=== PATIENT | male | born 1965 | race Caucasian/White ===

== ENCOUNTER 2021-01-18 12:31 | Outpatient (REF) | payer BC, SELFPAY ==
--- NOTE | ~2021-01-18 | XR_ITS ---
EXAMINATION: XR CHEST CLINICAL INFORMATION: Right upper chest pain COMPARISON: Previous chest x-ray November 2013 TECHNIQUE: 2 views of the chest were obtained. FINDINGS: The cardiac and mediastinal contours are normal. The lungs are clear. There is no pleural effusion or pneumothorax. There are mild degenerative changes of the spine. XR/XR chest 2V IMPRESSION: Unremarkable examination.
[2021-01-18 14:00] LABS: MANUAL DIFF FLAG NO
[2021-01-18 14:07] LABS: Basophils Percent Auto 0.5 % (0-2); Eosinophils Absolute Auto 0.1 X10*3/uL (0.0-0.4); Eosinophils Percent Auto 1.3 % (0-4); Hematocrit 45.8 % (42-52); Hemoglobin 15.6 g/dl (14.0-18.0); Imm Gran Abs Auto 0.02 X10*3/uL (0.00-0.03); Imm Gran Pct Auto 0.3 % (0.0-0.4); Lymphocytes Absolute Auto 1.5 X10*3/uL (1.2-4.9); Lymphocytes Percent Auto 24.8 % (20-40); Mean Corpuscular HGB Conc 34.1 g/dl (31.0-36.0); Mean Corpuscular Hemoglobin 29.8 pg (27.0-33.0); Mean Corpuscular Volume 87.4 fL (80-98); Mean Platelet Volume 10.2 fL (9.4-12.4); Monocytes Absolute Auto 0.6 X10*3/uL (0.1-1.2); Monocytes Percent Auto 10.1 % (2-11); Neutrophils Absolute Auto 3.9 X10*3/uL (2.0-8.3); Platelet Count 211 X10*3/uL (160-400); Red Blood Count 5.24 X10*6/uL (4.60-5.80); Red Cell Distribution Width 12.1 % (11.0-16.0); White Blood Count 6.1 X10*3/uL (4.8-10.8)
[2021-01-18 14:48] LABS: Alanine Aminotransferase 14 U/L (0-40); Albumin Level 4.3 g/dL (3.5-5.0); Alkaline Phosphatase 69 U/L (39-117); Anion Gap 14 (12-20); Aspartate Amino Transferase 14 U/L (5-37); Bilirubin Total 0.4 mg/dL (0.0-1.0); Blood Urea Nitrogen 15 mg/dL (9-16); C Reactive Protein 0.28 mg/dL (< or = 0.50); Calcium 9.1 mg/dL (8.4-10.2); Carbon Dioxide 28 mmol/L (22-29); Chloride 106 mmol/L (96-108); Estimated Glomerular Filt Rate > 60; Glucose Random 81 mg/dL (60-115); Potassium 4.7 mmol/L (3.3-5.1); Sodium 143 mmol/L (135-145); Total Protein 6.8 g/dL (6.5-8.0)
== END 2021-01-18 12:32 | disposition home or self-care (01) ==
LOC: HO.LAB 12:31
PROVIDERS: PCP Internal Medicine; Visit Provider Internal Medicine
DX: R07.89 Other chest pain (principal); I10 Essential (primary) hypertension
CPT/HCPCS: 36415; 71046; 80053; 85025; 86140

== ENCOUNTER 2021-01-20 18:34 | Outpatient (REF) | payer BC, SELFPAY ==
--- NOTE | ~2021-01-20 | MR_ITS ---
EXAMINATION: MR SHOULDER WITHOUT CONTRAST, RIGHT CLINICAL INFORMATION: Right shoulder pain. Evaluate for a partial rotator cuff tear. COMPARISON: None TECHNIQUE: MRI of the shoulder without contrast was performed on a high-field scanner. FINDINGS: ROTATOR CUFF: Intact. No muscle atrophy or fatty infiltration. BICEPS: Normal. CORACOACROMIAL ARCH: The undersurface of the acromion is curved with no subacromial spur. Mhadpbsh-bh-pezrub acromioclavicular osteoarthritis with an associated joint effusion as well as adjacent marrow and capsular edema. Given the degree of findings, this is likely the source of the patient's pain. LABRUM/CAPSULE: Nondisplaced undersurface tearing of the posterior, posteroinferior, and inferior labrum. There is a paralabral cyst adjacent to the posteroinferior labrum which measures up to 1.5 cm as well as a small paralabral cyst adjacent to the inferior labrum measuring up to 0.7 cm. The joint capsule is intact. GLENOHUMERAL JOINT/MARROW: Normal. MR/MR shoulder RT wo con IMPRESSION: 1. Piuxxwcg-[id number]-omxdkf acromioclavicular osteoarthritis with a joint effusion as well as adjacent marrow and capsular edema. Given the degree of findings, this may be the source of the patient's pain. 2. Nondisplaced undersurface tearing of the posterior, posteroinferior, and inferior labrum with adjacent paralabral cysts measuring 1.5 cm posteriorly and 0.7 cm more anteriorly. 3. No rotator cuff tear.
== END 2021-01-20 18:35 | disposition home or self-care (01) ==
LOC: HO.MRI 18:34
PROVIDERS: PCP Internal Medicine; Visit Provider Internal Medicine
DX: M25.511 Pain in right shoulder (principal); M75.111 Incomplete rotator cuff tear or rupture of right shoulder, not specified as traumatic
CPT/HCPCS: 73221

== ENCOUNTER 2021-12-15 08:18 | Outpatient (REF) | payer BC, SELFPAY ==
[2021-12-15 10:29] LABS: MANUAL DIFF FLAG NO
[2021-12-15 10:32] LABS: Basophils Percent Auto 0.5 % (0-2); Eosinophils Absolute Auto 0.1 X10*3/uL (0.0-0.4); Eosinophils Percent Auto 2.3 % (0-4); Hematocrit 45.2 % (42.0-52.0); Hemoglobin 15.5 g/dl (14.0-18.0); Imm Gran Abs Auto 0.03 X10*3/uL (0.00-0.03); Imm Gran Pct Auto 0.5 % (0.0-0.4); Lymphocytes Absolute Auto 1.2 X10*3/uL (1.2-4.9); Lymphocytes Percent Auto 21.8 % (20-40); Mean Corpuscular HGB Conc 34.3 g/dl (31.0-36.0); Mean Corpuscular Hemoglobin 29.9 pg (27.0-33.0); Mean Corpuscular Volume 87.1 fL (80.0-98.0); Mean Platelet Volume 9.8 fL (9.4-12.4); Monocytes Absolute Auto 0.8 X10*3/uL (0.1-1.2); Monocytes Percent Auto 14.4 % (2-11); Neutrophils Absolute Auto 3.4 x10*3/uL (2.0-8.3); Neutrophils Percent Auto 60.5 % (45-73); Platelet Count 228 X10*3/uL (160-400); Red Blood Count 5.19 X10*6/uL (4.60-5.80); Red Cell Distribution Width 12.4 % (11.0-16.0); White Blood Count 5.6 X10*3/uL (4.8-10.8)
[2021-12-15 10:56] LABS: Alanine Aminotransferase 47 U/L (0-40); Albumin Level 4.1 g/dL (3.5-5.0); Alkaline Phosphatase 60 U/L (39-117); Anion Gap 10 (12-20); Aspartate Amino Transferase 107 U/L (5-37); Bilirubin Total 0.7 mg/dL (0.0-1.0); Blood Urea Nitrogen 19 mg/dL (9-16); Carbon Dioxide 28 mmol/L (22-29); Chloride 107 mmol/L (96-108); Cholesterol 206 mg/dL; Estimated Glomerular Filt Rate > 60; Glucose Fasting 99 mg/dL (60-99); HDL Cholesterol 37 mg/dL; LDL Cholesterol Calculated 136 mg/dl; Potassium 4.2 mmol/L (3.3-5.1); Sodium 141 mmol/L (135-145); Total Protein 6.6 g/dL (6.5-8.0); Triglycerides 165 mg/dL
[2021-12-15 11:17] LABS: Prostate Specific Antigen Scr 1.12 ng/mL (<0.05-4.0)
== END 2021-12-15 08:19 | disposition home or self-care (01) ==
LOC: HO.10HDL 08:18
PROVIDERS: Visit Provider Internal Medicine
DX: Z00.00 Encounter for general adult medical examination without abnormal findings (principal); Z12.5 Encounter for screening for malignant neoplasm of prostate
CPT/HCPCS: 36415; 80053; 80061; 84153; 85025

== ENCOUNTER 2021-12-17 09:45 | Outpatient (REF) | payer BC, SELFPAY ==
[2021-12-17 11:47] LABS: Alanine Aminotransferase 48 U/L (0-40); Albumin Level 4.2 g/dL (3.5-5.0); Alkaline Phosphatase 63 U/L (39-117); Aspartate Amino Transferase 82 U/L (5-37); Bilirubin Direct 0.3 mg/dL (0.0-0.5); Bilirubin Total 0.8 mg/dL (0.0-1.0); C Reactive Protein 0.33 mg/dL (< or = 0.50); Total Protein 6.8 g/dL (6.5-8.0)
[2021-12-17 12:05] LABS: HBS Num1 0.21 mIU/mL (0-7.99); ~HepC Num1 0.18 S/CO (0.00-0.79); ~Hepatitis B Surface Antibody NONREACTIVE (Nonreactive); ~Hepatitis C Antibody Nonreactive (Nonreactive)
[2021-12-17 12:08] LABS: HBsAGNum1 0.25 S/CO (0.00-0.99); Hepatitis B Surface Antigen Negative (Negative)
== END 2021-12-17 09:46 | disposition home or self-care (01) ==
LOC: HO.10HDL 09:45
PROVIDERS: Visit Provider Internal Medicine
DX: R79.89 Other specified abnormal findings of blood chemistry (principal)
CPT/HCPCS: 36415; 80076; 86140; 86706; 86803; 87340

== ENCOUNTER 2022-01-03 09:54 | Outpatient (REF) | payer BC, SELFPAY ==
--- NOTE | ~2022-01-03 | US_ITS ---
EXAMINATION: US ABDOMEN COMPLETE CLINICAL INFORMATION: Elevated liver test. COMPARISON: None TECHNIQUE: Real-time imaging of the abdominal viscera. FINDINGS: PANCREAS: Normal. ABDOMINAL AORTA: The proximal, mid, and distal segments are normal in caliber. INFERIOR VENA CAVA: Visualized portions are normal. LIVER: Normal. The liver is normal in size. The liver contour is normal. Parenchymal echogenicity is normal. No focal hepatic lesion. There is no intrahepatic biliary duct dilatation seen. GALLBLADDER: Impacted 2.7 cm stone in the gallbladder neck without secondary evidence of acute cholecystitis. No gallbladder wall thickening or pericholecystic fluid. Negative sonographic Stinson sign. COMMON BILE DUCT: Not visualized. RIGHT KIDNEY: Normal. No hydronephrosis. No renal calculi or focal parenchymal lesions. The kidney measures 13.1 cm in maximum dimension. LEFT KIDNEY: Normal. No hydronephrosis. No renal calculi or focal parenchymal lesions. The kidney measures 14.0 cm in maximum dimension. SPLEEN: Normal. The spleen measures 13.0 cm in maximum dimension. FREE FLUID: None. US/US abdomen complete IMPRESSION: Nonvisualization of the common bile duct. No intrahepatic ductal dilatation. Impacted gallstone in the gallbladder neck without secondary evidence of acute cholecystitis.
== END 2022-01-03 09:55 | disposition home or self-care (01) ==
LOC: HO.HMGCX 09:54
PROVIDERS: PCP Internal Medicine; Visit Provider Internal Medicine
DX: R74.01 Elevation of levels of liver transaminase levels (principal)
CPT/HCPCS: 76700

== ENCOUNTER 2022-01-25 12:28 | Outpatient (REF) | payer BC, SELFPAY ==
[2022-01-25 12:40] LABS: MANUAL DIFF FLAG NO
[2022-01-25 13:18] LABS: Basophils Percent Auto 0.2 % (0-2); Eosinophils Absolute Auto 0.1 X10*3/uL (0.0-0.4); Eosinophils Percent Auto 1.9 % (0-4); Hematocrit 46.3 % (42.0-52.0); Hemoglobin 15.4 g/dl (14.0-18.0); Imm Gran Abs Auto 0.02 X10*3/uL (0.00-0.03); Imm Gran Pct Auto 0.4 % (0.0-0.4); Lymphocytes Absolute Auto 1.1 X10*3/uL (1.2-4.9); Lymphocytes Percent Auto 21.6 % (20-40); Mean Corpuscular HGB Conc 33.3 g/dl (31.0-36.0); Mean Corpuscular Hemoglobin 28.9 pg (27.0-33.0); Mean Platelet Volume 9.8 fL (9.4-12.4); Monocytes Absolute Auto 0.9 X10*3/uL (0.1-1.2); Neutrophils Percent Auto 57.9 % (45-73); Platelet Count 197 X10*3/uL (160-400); Red Blood Count 5.32 X10*6/uL (4.60-5.80); Red Cell Distribution Width 12.2 % (11.0-16.0); White Blood Count 5.2 X10*3/uL (4.8-10.8)
[2022-01-25 13:47] LABS: Alanine Aminotransferase 17 U/L (0-40); Albumin Level 4.1 g/dL (3.5-5.0); Alkaline Phosphatase 63 U/L (39-117); Anion Gap 11 (12-20); Aspartate Amino Transferase 16 U/L (5-37); Bilirubin Total 0.6 mg/dL (0.0-1.0); Blood Urea Nitrogen 16 mg/dL (9-16); C Reactive Protein 2.39 mg/dL (< or = 0.50); Carbon Dioxide 28 mmol/L (22-29); Chloride 106 mmol/L (96-108); Estimated Glomerular Filt Rate 52; Glucose Random 92 mg/dL (60-115); Potassium 4.4 mmol/L (3.3-5.1); Sodium 141 mmol/L (135-145); Total Protein 6.7 g/dL (6.5-8.0)
== END 2022-01-25 12:29 | disposition home or self-care (01) ==
LOC: HO.LAB 12:28
PROVIDERS: PCP Internal Medicine; Visit Provider Internal Medicine
DX: R10.9 Unspecified abdominal pain (principal); K80.20 Calculus of gallbladder without cholecystitis without obstruction
CPT/HCPCS: 36415; 80053; 85025; 86140

== ENCOUNTER → 2022-01-26 08:26 | Outpatient (BNVA) | payer BC, SELFPAY | PROVIDERS: PCP Internal Medicine; Referring Provider Internal Medicine; Visit Provider Surgery | DX: Z13.89 Encounter for screening for other disorder (principal) ==

== ENCOUNTER 2022-12-05 09:03 | Day surgery (SDC) | payer BC, SELFPAY ==
[2022-12-05 06:20] VITALS: BMI 31.6
[2022-12-05 09:06] VITALS: BP 136/93; PULSE 75; RESP 19; TEMP 36.9; O2SAT 97
[2022-12-05] MEDS: Lactated Ringers 1,000 ML 50 ML IVCONT (09:25)
--- NOTE | 2022-12-05 09:54 | P.CONAN_ITS ---
HPI - Anesthesia Eval Consult details Narrative: 57 M for colonoscopy [facility] Active Problems Active Problems: All Active Problems (Updated 12/02/22 @ 13:06 by Mireya Sequeira RN) Gallstone (Acute) Hypertension (Acute) Past Medical History Medical History (Updated 12/02/22 @ 13:06 by Mireya Sequeira RN) Gallstone Hypertension KIMBERLY (obstructive sleep apnea) Functional capacity: independent ambulation Family History Family history of problems with anesthesia: No Surgical History Surgical History (Updated 12/02/22 @ 13:06 by Mireya Sequeira RN) H/O colonoscopy History of knee surgery History of shoulder surgery History of tonsillectomy [place] teeth extracted History of Problems with Anesthesia: No Social History Social History (Updated 01/26/22 @ 14:31 by CATIE Ardon) Patient Tobacco Use Status: Never used Tobacco Are you DNR?: No Advance Directives: No Advance Directives Information Provided: Yes Meds Allergies Allergy/AdvReac Type Severity Reaction Status Date / Time No Known Allergies Allergy Verified 01/26/22 08:34 [No Known Allergies*] Active Medications: Current Medications Lactated Ringer's (Lr) 1,000 mls @ 50 mls/hr IVCONT .Q20H MENDEZ Last Admin: 12/05/22 09:25 Dose: 50 mls/hr Sodium Biphosphate/Sodium Phosphate (Sodium Phosphate,Dickey-Dibasic 133 Ml Enema) 133 ml TN ONCE PRN PRN Reason: Poor Colonoscopy Prep Results Home Medications Medication Instructions Recorded Confirmed Last Taken Type amlodipine 5 mg tablet 5 mg PO DAILY 01/26/22 12/05/22 12/05/22 History losartan 50 mg tablet 50 mg PO BID 01/26/22 12/05/22 12/05/22 History Exam Exam Date and Time: December 05, 2022 0954 Height,Weight and Vital Signs: Height 6 ft 2 in Weight 111.584 kg Last Vital Signs Temp 98.5 F 12/05/22 09:06 Pulse 75 12/05/22 09:06 Resp 19 12/05/22 09:06 BP 136/93 H 12/05/22 09:06 Pulse Ox 97 12/05/22 09:06 O2 Del Method 12/05/22 09:06 Airway Mallampati Class: III Loose/Missing/Broken Teeth: Yes (Chipped multiple ) Assessment and Plan Assessment Anesthesia Assessment: Anesthesia Plan Discussed and Chart Reviewed Final Anesthetic Review Family History of Problems with Anesthesia: No History of Problems with Anesthesia: No NPO: Yes ASA Class: II Final Preanesthetic Review: Meds/Allgs Chart Reviewed, Consent Obtained/Reviewed and Anes Risks/Benef Reviewed Patient Risk: Intermediate Procedure Risk: Intermediate Anesthetic Plan Anesthetic Plan: MAC: Disposition: Standard PACU
--- NOTE | 2022-12-05 11:19 | PM.OP ---
Brief Operative Note Date of Service: 12/05/22 Pre-op diagnosis: Screening Post-op diagnosis: other (Colon polyp) Procedure: Colonoscopy to the cecum and TI with biopsy and removal of polyp Surgeon: Jerod Valdes Anesthesia: MAC Was an Rib Stiffener And Heel Dipper used for this Procedure?: No Estimated blood loss (mL): 2.0 Pathology: other (A. Polyp at 50cm) Condition: stable Disposition: PACU
[2022-12-05 11:22] VITALS: BP 133/73; PULSE 79; RESP 17; TEMP 36.6; O2SAT 97
[2022-12-05 11:37] VITALS: BP 127/84; PULSE 68; RESP 16; TEMP 36.3; O2SAT 97
--- NOTE | 2022-12-06 03:23 | OP_ITS ---
SURGEON: Jerod Valdes MD INDICATIONS: The patient presents for followup of colorectal cancer screening and personal history of tubular adenoma of the colon. Full consent has been obtained from him for this, including risks of bleeding and perforation. PREOPERATIVE DIAGNOSIS: POSTOPERATIVE DIAGNOSIS: PROCEDURE PERFORMED: Colonoscopy to the cecum and terminal ileum with biopsy and removal of polyp. ESTIMATED BLOOD LOSS: COMPLICATIONS: ANESTHESIA: Medications used, monitored anesthesia care. ASSISTANTS: SPECIMENS: PREOPERATIVE DIAGNOSES: Colorectal cancer screening and personal history of tubular adenoma of the colon. POSTOPERATIVE DIAGNOSES: Colorectal cancer screening and personal history of tubular adenoma of the colon, colon polyp, diverticulosis, and internal hemorrhoids. DESCRIPTION OF PROCEDURE: The patient was placed in the left lateral decubitus position. The digital rectal exam revealed no abnormalities. The Olympus video pediatric colonoscope was entered into the rectum and advanced easily to the cecum. Once in the cecum, I did identify normal-appearing cecal pouch with appendiceal orifice and normal-appearing ileocecal valve. The terminal ileum was cannulated and appeared normal. The scope was withdrawn back in the colon. The entire cecum and ileocecal valve appeared normal. The scope was slowly withdrawn assessing all mucosal surfaces carefully. Preparation was excellent. At 50 cm was a flat, approximately 3 to 4 mm polyp, which was biopsied and completely removed with cold biopsy forceps. I did not visualize any other polyps, colitis, or angiodysplasias. There was a mild amount of sigmoid diverticulosis. In the rectum, the scope was retroflexed visualizing small internal hemorrhoids, but no other pathology. The rectal mucosa appeared normal. The scope was straightened and withdrawn from the patient. He tolerated the procedure well and was returned to the recovery area in stable condition. IMPRESSION: 1. Colon polyp. 2. Diverticulosis. 3. Internal hemorrhoids. PLAN: The results of the biopsy will be checked. I would recommend a repeat colonoscopy in 5 years for further screening. He will otherwise see me on a p.r.n. basis. MD GUILLERMO Fernandez/MILAGRO / [id number] MTDD
== END 2022-12-05 12:02 | disposition home or self-care (01) ==
PROVIDERS: PCP Internal Medicine; Visit Provider Internal Medicine
PROC: 0DJD8ZZ Inspection of Lower Intestinal Tract, Via Natural or Artificial Opening Endoscopic (ICD-10-PCS; CPT 45378; principal; 2022-12-05 10:20)
DX: Z12.11 Encounter for screening for malignant neoplasm of colon (principal); Z86.010 Personal history of colon polyps; K63.5 Polyp of colon; K57.30 Diverticulosis of large intestine without perforation or abscess without bleeding; K64.8 Other hemorrhoids; G47.33 Obstructive sleep apnea (adult) (pediatric); I10 Essential (primary) hypertension; K80.20 Calculus of gallbladder without cholecystitis without obstruction; R79.89 Other specified abnormal findings of blood chemistry; Z79.899 Other long term (current) drug therapy
CPT/HCPCS: 45380; 88305

== ENCOUNTER 2023-05-05 06:56 | Outpatient (REF) | payer BC, SELFPAY ==
[2023-05-05 07:14] LABS: MANUAL DIFF FLAG NO
[2023-05-05 08:12] LABS: Basophils Percent Auto 0.7 % (0-2); Eosinophils Absolute Auto 0.2 X10*3/uL (0.0-0.4); Hematocrit 47.5 % (42.0-52.0); Hemoglobin 16.2 g/dl (14.0-18.0); Imm Gran Abs Auto 0.02 X10*3/uL (0.00-0.03); Imm Gran Pct Auto 0.3 % (0.0-0.4); Lymphocytes Absolute Auto 1.4 X10*3/uL (1.2-4.9); Lymphocytes Percent Auto 23.2 % (20-40); Mean Corpuscular HGB Conc 34.1 g/dl (31.0-36.0); Mean Corpuscular Hemoglobin 29.9 pg (27.0-33.0); Mean Corpuscular Volume 87.8 fL (80.0-98.0); Mean Platelet Volume 9.8 fL (9.4-12.4); Monocytes Absolute Auto 0.8 X10*3/uL (0.1-1.2); Monocytes Percent Auto 12.8 % (2-11); Neutrophils Absolute Auto 3.6 x10*3/uL (2.0-8.3); Platelet Count 205 X10*3/uL (160-400); Red Blood Count 5.41 X10*6/uL (4.60-5.80); Red Cell Distribution Width 12.3 % (11.0-16.0)
[2023-05-05 08:14] LABS: Appearance Urine Clear; Color Urine Yellow; Glucose Urine UA Negative (Negative); Leukocyte Esterase Urine Negative (Negative); Nitrite Urine Negative (Negative); PH 6.5 (5.0-9.0); Specific Gravity - Urine 1.025 (1.005-1.025); Urine Blood Negative (Negative); Urine Ketones Negative (Negative); Urine Protein Negative (Neg-Trace)
[2023-05-05 09:10] LABS: Alanine Aminotransferase 35 U/L (0-40); Alkaline Phosphatase 69 U/L (39-117); Anion Gap 14 (12-20); Aspartate Amino Transferase 22 U/L (5-37); Bilirubin Total 0.5 mg/dL (0.0-1.0); Blood Urea Nitrogen 19 mg/dL (9-16); Calcium 9.3 mg/dL (8.4-10.2); Carbon Dioxide 26 mmol/L (22-29); Chloride 107 mmol/L (96-108); Cholesterol 216 mg/dL; Estimated Glomerular Filt Rate > 60; Glucose Fasting 95 mg/dL (60-99); HDL Cholesterol 41 mg/dL; LDL Cholesterol Calculated 137 mg/dl; Potassium 4.2 mmol/L (3.3-5.1); Sodium 143 mmol/L (135-145); Total Protein 7.1 g/dL (6.5-8.0); Triglycerides 190 mg/dL
[2023-05-05 09:24] LABS: Prostate Specific Antigen 0.92 ng/mL (<0.05-4.0)
[2023-05-05 09:28] LABS: Free T4 (Free Thyroxine) 0.87 ng/dL (0.71-1.85); Thyroid Stimulating Hormone 6.54 uIU/mL (0.32-4.0)
== END 2023-05-05 06:57 | disposition home or self-care (01) ==
LOC: HO.LAB 06:56
PROVIDERS: PCP Internal Medicine; Visit Provider Internal Medicine
DX: I10 Essential (primary) hypertension (principal); R63.5 Abnormal weight gain; R35.1 Nocturia; Z12.5 Encounter for screening for malignant neoplasm of prostate
CPT/HCPCS: 36415; 80053; 80061; 81003; 84153; 84439; 84443; 85025

== ENCOUNTER 2023-07-10 06:53 | Outpatient (REF) | payer BC, SELFPAY ==
[2023-07-10 12:06] LABS: Cholesterol 212 mg/dL (<200); HDL Cholesterol 39 mg/dL (>40); LDL Cholesterol Calculated 134 mg/dL (<100); Triglycerides 196 mg/dL (<150)
[2023-07-10 12:25] LABS: Free T4 (Free Thyroxine) 0.94 ng/dL (0.71-1.85); Thyroid Stimulating Hormone 5.38 uIU/mL (0.32-4.0)
== END 2023-07-10 06:54 | disposition home or self-care (01) ==
LOC: HO.HMGCLDS 06:53
PROVIDERS: PCP Internal Medicine; Visit Provider Internal Medicine
DX: E03.9 Hypothyroidism, unspecified (principal); E78.00 Pure hypercholesterolemia, unspecified
CPT/HCPCS: 36415; 80061; 84439; 84443

== ENCOUNTER 2023-09-04 08:07 | Outpatient (REF) | payer BC, SELFPAY ==
--- NOTE | ~2023-09-04 | CT_ITS ---
EXAMINATION: CT ABDOMEN AND PELVIS WITHOUT CONTRAST CLINICAL INFORMATION: Right-sided abdominal pain, rule out impacted gallstone COMPARISON: Ultrasound from 01/03/2022 TECHNIQUE: Multidetector volumetric imaging was performed from the superior aspect of the liver through the pubic symphysis. Sagittal and coronal reformatted images were obtained on the technologist's workstation. This CT examination was performed using dose optimization techniques as appropriate, variously including the following: *Automated exposure control *Adjustment of mA and/or kV according to patient size (this includes techniques or standardized protocols for targeted exams where dose is matched to indication/reason for exam; i.e. extremities or head) *Use of iterative reconstruction technique DLP: 778 mGy-cm FINDINGS: LUNG BASES: The visualized lung bases are unremarkable. LIVER, GALLBLADDER, AND BILIARY TREE: The liver is normal in size, shape, and attenuation. No focal hepatic lesion or biliary ductal dilatation is present. Gallbladder is partially contracted with circumferentially calcified 1.7 x 1.7 x 2.1 there is no evidence of wall thickening. CBD is not dilated. There is no choledocholithiasis. Cm calculus in the medial portion of gallbladder PANCREAS: Unremarkable. SPLEEN: Unremarkable. ADRENAL GLANDS: Unremarkable. KIDNEYS AND URETERS: The kidneys are normal in size, shape, and attenuation. No hydronephrosis, hydroureter, or calculi seen. No perinephric stranding. BLADDER: Unremarkable. GASTROINTESTINAL TRACT: There is small hiatal hernia. The stomach, duodenum are unremarkable. Appendix is normal. Loops of small bowel are unremarkable. Colon is normal with retention of stool. A no diverticulitis or diverticulosis seen. ABDOMINAL WALL: All fat-containing umbilical hernia, left inguinal hernia. LYMPH NODES: Normal. VASCULAR: Unremarkable. PELVIC VISCERA: Unremarkable. OSSEOUS STRUCTURES: Unremarkable. CT/CT abdomen pelvis wo IV con IMPRESSION: 1. Cholelithiasis without evidence of cholecystitis. 2. Small hiatal hernia. 3. Small fat-containing umbilical and left inguinal hernia. Fleischner guidelines were followed.
[2023-09-04] MEDS: Barium Sulfate Oral (Mocha) 450 ML ORAL.SUSP 900 ML PO (10:45)
== END 2023-09-04 08:08 | disposition home or self-care (01) ==
LOC: HO.CT 08:07
PROVIDERS: PCP Internal Medicine; Visit Provider Internal Medicine
DX: R10.31 Right lower quadrant pain (principal)
CPT/HCPCS: 74176

== ENCOUNTER 2023-09-19 09:13 | Outpatient (AMB) | payer BC, SELFPAY ==
--- NOTE | 2023-09-19 09:16 | MHC.OFFVIS ---
Intake Intake Visit Reasons: gallstones Intake Note: Patient referred by Dr. Velásquez for gallstones. Recent CT scan Abd/ pelvis on 09-04-23. C/o Rt abd pain, discomfort after eating a big meal. Denies diarrhea, constipation. Noticed some blood with BM last week. 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 He has had several months history of epigastric right upper quadrant pain. This is associated with meals. He is not unclear if he has fatty food intolerance per se. Otherwise patient is tolerating his diet and having regular bowel habits. Never been jaundiced before. Patient had a sonogram as well as CT scan demonstrated cholelithiasis, umbilical hernia, small left inguinal hernia. Chart was reviewed patient evaluated [facility] Medical History KIMBERLY (obstructive sleep apnea) Gallstone Hypertension Surgical History H/O colonoscopy [place] teeth extracted History of knee surgery History of shoulder surgery History of tonsillectomy Family History (Updated 09/19/23 @ 09:26 by CATIE Dobbins) Father Lung cancer Brother Esophageal cancer (Updated 09/19/23 @ 09:26 by CATIE Dobbins) Alcohol intake: current Alcohol intake frequency: a few times a week Alcohol type: beer, wine and hard liquor Patient Tobacco Use Status: Never used Tobacco Physical Exam Const Other: Well-developed male in no acute distress Eyes Other: Anicteric Chest Other: Chest breath sounds bilaterally, HS 1 in 2 GI Other: Patient was examined both supine and standing with Valsalva. Abdomen soft, moderately corpulent. Rectus diastasis. Approximately 2 cm reducible umbilical hernia. Small left inguinal hernia. Right groin negative. Genitalia within normal limits. Abdomen otherwise soft benign Assessment & Plan Assessment & Plan (1) Gallstone: Code(s): K80.20 - Calculus of gallbladder without cholecystitis without obstruction (2) Umbilical hernia: Code(s): K42.9 - Umbilical hernia without obstruction or gangrene Plan Risks, benefits, alternatives laparoscopic possible open cholecystectomy as well as concomitant umbilical hernia repair reviewed the patient included but not limited to bleeding, infection, recurrence of symptoms, numbness, pain, scarring, bowel or bile duct injury or leak and the patient wishes to proceed. All questions were answered. Arrangements will be made for this on a day which is convenient for him. Coding Level of Care Code New Pt Level 5 (79056) Diagnoses Gallstone K80.20 Umbilical hernia K42.9
== END 2023-09-19 09:41 | disposition home or self-care (01) ==
PROVIDERS: PCP Internal Medicine; Visit Provider Surgery
DX: K80.20 Calculus of gallbladder without cholecystitis without obstruction (principal); K42.9 Umbilical hernia without obstruction or gangrene
CPT/HCPCS: 99204

== ENCOUNTER → 2023-09-19 09:13 | Outpatient (BNVA) | payer BC, SELFPAY | PROVIDERS: PCP Internal Medicine; Visit Provider Surgery ==

== ENCOUNTER 2023-10-06 06:59 | Day surgery (SDC) | payer BC, SELFPAY ==
[2023-10-03 14:44] VITALS: BMI 31.6
--- NOTE | 2023-10-05 23:03 | MHC.SHP ---
Pre-Procedural Eval Section A Date of Service: 10/05/23 The patient is an INPATIENT: No Changes since office visit: No Cold of Flu in the past 2 weeks, No New Medical Problems, No Changes in Medication and No Patient answered all questions The History & Physical has been completed within 30 days and I have reviewed it.: Yes Section B Chief Complaint: Calculus of gallbladder,Umbilical hernia Allergies: Allergies Allergy/AdvReac Type Severity Reaction Status Date / Time No Known Allergies Allergy Verified 09/19/23 09:24 [No Known Allergies*] Plan I have reviewed the history and physical and performed a pertinent physical examination on my patient. No changes have occurred unless specified. Time Spent With Patient Time: Total time managing care of this patient today ____ minutes.
[2023-10-06] VITALS (11 sets, daily range): BP systolic 131–176; BP diastolic 90–116; PULSE 75–90; RESP 12–16; TEMP 36.2–36.3; O2SAT 92–96; BMI 32.4
--- NOTE | 2023-10-06 08:40 | HO.ANESPROP2 ---
Documented by User: Diana Kennedy NP 10/05/23 10:37 HPI - Anesthesia Eval Consult details Narrative: 58yo M for Cholecystectomy Laparoscopic, Repair of Reducible Hernia Umbilical PMFSH Active Problems Active Problems: All Active Problems (Updated 10/03/23 @ 14:41 by Kimberly Forrester RN) Umbilical hernia (Acute) Gallstone (Acute) Hypertension (Acute) Past Medical History Medical History (Updated 10/03/23 @ 14:41 by Kimberly Forrester RN) Hypothyroid KIMBERLY (obstructive sleep apnea) Hypertension Family History Family History (Updated 09/19/23 @ 09:26 by CATIE Dobbins) Father Lung cancer Brother Esophageal cancer Family history of problems with anesthesia: No Surgical History Surgical History (Updated 10/03/23 @ 14:40 by Kimberly Forrester RN) H/O colonoscopy [place] teeth extracted Gallstone History of knee surgery History of shoulder surgery History of tonsillectomy History of Problems with Anesthesia: No Social History Social History (Updated 09/19/23 @ 09:26 by CATIE Dobbins) Alcohol intake: current Alcohol intake frequency: holidays/special occasions only Alcohol type: beer, wine and hard liquor Patient Tobacco Use Status: Never used Tobacco Second Hand Smoke Exposure: No Use of substances other than those prescribed or required for medical reasons: No Are you DNR?: No Advance Directives: No Advance Directives Information Provided: Yes Advance Directives on File: No Meds Allergies Allergy/AdvReac Type Severity Reaction Status Date / Time No Known Allergies Allergy Verified 09/19/23 09:24 [No Known Allergies*] Home Medications Medication Instructions Recorded Confirmed Last Taken Type amlodipine 5 mg tablet 5 mg PO DAILY 01/26/22 10/03/23 12/05/22 History losartan 50 mg tablet 50 mg PO BID 01/26/22 10/03/23 12/05/22 History levothyroxine 25 mcg capsule 25 mcg PO DAILY 09/19/23 10/03/23 Unknown History Exam Height,Weight and Vital Signs: Height 6 ft 2 in Weight 111.584 kg Pertinent Lab Results Pertinent Lab Results: Laboratory Tests 05/05/23 07:13 WBC 6.0 Hgb 16.2 Hct 47.5 Plt Count 205 Sodium 143 Potassium 4.2 Chloride 107 Carbon Dioxide 26 BUN 19 H Creatinine 1.16 Assessment and Plan Assessment Anesthesia Assessment: Chart Reviewed Final Anesthetic Review Family History of Problems with Anesthesia: No History of Problems with Anesthesia: No Documented by User: Daniela Lares DO 10/06/23 08:42 [facility] Past Medical History Medical History (Updated 10/03/23 @ 14:41 by Kimberly Forrester RN) Hypothyroid KIMBERLY (obstructive sleep apnea) Hypertension Family History Family History (Updated 09/19/23 @ 09:26 by CATIE Dobbins) Father Lung cancer Brother Esophageal cancer Family history of problems with anesthesia: No Surgical History Surgical History (Updated 10/03/23 @ 14:40 by Kimberyl Forrester RN) H/O colonoscopy [place] teeth extracted Gallstone History of knee surgery History of shoulder surgery History of tonsillectomy History of Problems with Anesthesia: No Social History Social History (Updated 09/19/23 @ 09:26 by CATIE Dobbins) Alcohol intake: current Alcohol intake frequency: holidays/special occasions only Alcohol type: beer, wine and hard liquor Patient Tobacco Use Status: Never used Tobacco Second Hand Smoke Exposure: No Use of substances other than those prescribed or required for medical reasons: No Are you DNR?: No Advance Directives: No Advance Directives Information Provided: Yes Advance Directives on File: No Meds Allergies Allergy/AdvReac Type Severity Reaction Status Date / Time No Known Allergies Allergy Verified 09/19/23 09:24 [No Known Allergies*] Home Medications Medication Instructions Recorded Confirmed Last Taken Type amlodipine 5 mg tablet 5 mg PO DAILY 01/26/22 10/03/23 12/05/22 History losartan 50 mg tablet 50 mg PO BID 01/26/22 10/03/23 12/05/22 History levothyroxine 25 mcg capsule 25 mcg PO DAILY 09/19/23 10/03/23 Unknown History Exam Exam Date and Time: October 06, 2023 0840 Height,Weight and Vital Signs: Height 6 ft 2 in Weight 111.584 kg Height 6 ft 2 in Weight 114.419 kg Vital Signs Temperature 97.1 F 10/06/23 08:11 Pulse Rate 81 10/06/23 08:11 Respiratory Rate 16 10/06/23 08:11 Blood Pressure 151/99 H 10/06/23 08:11 Pulse Oximetry 94 10/06/23 08:11 Oxygen Delivery Method Room Air 10/06/23 08:11 Temperature 97.1 F 10/06/23 08:11 Pulse Rate 81 10/06/23 08:11 Respiratory Rate 16 10/06/23 08:11 Blood Pressure 151/99 H 10/06/23 08:11 Pulse Oximetry 94 10/06/23 08:11 Oxygen Delivery Method Room Air 10/06/23 08:11 Airway Mallampati Class: II TM Dist: >3cm Neck ROM: Full Loose/Missing/Broken Teeth: No Heart: S1S2 Lungs: CTAB Assessment and Plan Final Anesthetic Review Family History of Problems with Anesthesia: No History of Problems with Anesthesia: No NPO: Yes ASA Class: II Final Preanesthetic Review: No Changes in Pt Med Stat, Meds/Allgs Chart Reviewed, Consent Obtained/Reviewed and Anes Risks/Benef Reviewed Patient Risk: Low Procedure Risk: Low Anesthetic Plan Anesthetic Plan: GA and Agree w/ Assess. and Plan Disposition: Standard PACU
--- NOTE | 2023-10-06 10:15 | P.OP_ITS ---
Operative Note Operative Note Date of Service: 10/06/23 Narrative: Preoperative diagnosis: [] Recurrent biliary colic, car serrated umbilical hernia approximately 2 cm in size Postop diagnosis: [] Same Procedure; laparoscopic cholecystectomy, primary repair incarceratedUmbilical hernia Surgeon: [] Rey Press Hand Supervisor: [] Lona Type of Anesthesia: [] general Indication for surgery: [] gallbladder with omental adhesions to it. Intrahepatic gallbladder. Approximately 2 cm incarcerated umbilical hernia with omental contents Procedure; Patient is brought to the operating room, placed on operative table in supine position, after adequate level of general anesthesia was induced, the patient's abdomen was prepped and draped in usual sterile fashion. Using a supraumbilical curvilinear incision, this carried down through skin, subcutaneous tissue, where hernia was encountered. This was from the back of the umbilicus and circumferentially dissected down the fascia. Sac was opened were incarcerated omental contents were reduced. Sac was amputated. Gary technique was then used to insufflate the abdominal cavity to 15 mm of CO2. Upper midline and right subcostal ports were placed under direct laparoscopic view, the patient placed in reverse Trendelenburg position, tilted to the left. Gallbladder was grasped using laparoscopic graspers, and retracted superiorly and laterally. Omental adhesions were swept off the gallbladder were its hilum was approached. Cystic artery and cystic duct were each identified, circumferentially skeletonized, traced directly into the gallbladder, and critical view obtained. Each was clipped proximally x2, distally x1, and transected. Gallbladder which was very intrahepatic was then cauterized from the gallbladder fossa using Bovie. Specimen was placed in Endo-Catch bag, a retrieved through the umbilical port. Abdominal cavity was copiously irrigated and secured hemostasis. All ports removed under direct laparoscopic view. Wounds were closed in the following manner umbilical wound which was the side of the incarcerated hernia was closed primarily using interrupted 0 Vicryl sutures. Skin wounds were closed using subcuticular 4-0 Vicryl sutures followed by Steri-Strips and sterile dressings. Wounds were infiltrated 0.5% Marcaine with epinephrine a completion. Sponge, needle, instrument counts reported correct. Patient tolerated the procedure well and emerged anesthesia stable condition. EBL minimal
[2023-10-06] MEDS: oxyCODONE HCl Immed Release 5 MG TABLET 10 MG PO (10:31)
[2023-10-06] MEDS: fentaNYL citrate/PF 100 MCG/2 ML VIAL 50 MCG IVPUSH (10:34)
== END 2023-10-06 12:45 | disposition home or self-care (01) ==
PROVIDERS: PCP Internal Medicine; Visit Provider Surgery
PROC: 0FT44ZZ Resection of Gallbladder, Percutaneous Endoscopic Approach (ICD-10-PCS; CPT 47562; principal; 2023-10-06 09:00)
PROC: (CPT 47562; 2023-10-06 09:00)
DX: K80.10 Calculus of gallbladder with chronic cholecystitis without obstruction (principal); K82.8 Other specified diseases of gallbladder; K42.0 Umbilical hernia with obstruction, without gangrene; I10 Essential (primary) hypertension; G47.33 Obstructive sleep apnea (adult) (pediatric); E03.9 Hypothyroidism, unspecified; Z79.899 Other long term (current) drug therapy
CPT/HCPCS: 47562; 49592; 88304; J0131; J0690; J1100; J1885; J2405; J2704; J2795; J3010

== ENCOUNTER → 2023-10-06 06:59 | Outpatient (BNV) | payer BC, SELFPAY | PROVIDERS: PCP Internal Medicine; Visit Provider Surgery | DX: K80.20 Calculus of gallbladder without cholecystitis without obstruction (principal); K42.9 Umbilical hernia without obstruction or gangrene | CPT/HCPCS: 47562 ==

== ENCOUNTER 2023-10-16 14:14 | Outpatient (AMB) | payer BC, SELFPAY ==
--- NOTE | 2023-10-16 14:19 | A.OFFVIS_ITS ---
Intake Vital Signs 10/16/23 14:20 Weight 248 lb BP 170/98 H Blood Pressure Location Rt brachial Position Sitting Pulse 82 Intake Visit Reasons: S/p lap henny & umbilical hernia repair Intake Note: Patient here s/p lap henny and umbilical hernia repair on 10-06-23. Reports healing well. Patient c/o: cough and chest congestion X4d. 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 He is doing quite well. Has minimal incisional discomfort. He is tolerating his diet. He is having regular bowel habits. He has no wound issues or complaints PFSH Medical History Hypothyroid KIMBERLY (obstructive sleep apnea) Hypertension Surgical History H/O colonoscopy [place] teeth extracted Gallstone History of knee surgery History of shoulder surgery History of tonsillectomy Family History Father Lung cancer Brother Esophageal cancer Social History Alcohol intake: current Alcohol intake frequency: holidays/special occasions only Alcohol type: beer, wine and hard liquor Comment: counts correct Patient Tobacco Use Status: Never used Tobacco Second Hand Smoke Exposure: No Physical Exam Vital Signs: Last Vital Signs Pulse 82 10/16/23 14:20 BP 170/98 H 10/16/23 14:20 Eyes Other: Anicteric GI Other: Abdomen soft benign. All wounds clean dry and intact. Assessment & Plan Assessment & Plan (1) Umbilical hernia: Code(s): K42.9 - Umbilical hernia without obstruction or gangrene (2) Gallstone: Code(s): K80.20 - Calculus of gallbladder without cholecystitis without obstruction Plan Patient has been given local instructions, all questions answered, and will follow-up p.r.n.. Coding Level of Care Code Global (27163) Diagnoses Umbilical hernia K42.9 Gallstone K80.20
[2023-10-16 14:20] VITALS: BP 170/98; PULSE 82
== END 2023-10-16 14:26 | disposition home or self-care (01) ==
PROVIDERS: PCP Internal Medicine; Visit Provider Surgery
DX: K42.9 Umbilical hernia without obstruction or gangrene (principal); K80.20 Calculus of gallbladder without cholecystitis without obstruction
CPT/HCPCS: 99024

== ENCOUNTER → 2023-10-16 14:14 | Outpatient (BNVA) | payer BC, SELFPAY | PROVIDERS: PCP Internal Medicine; Visit Provider Surgery ==

== ENCOUNTER 2023-10-25 07:43 | Outpatient (REF) | payer BC, SELFPAY ==
[2023-10-25 12:28] LABS: Cholesterol 216 mg/dL (<200); HDL Cholesterol 41 mg/dL (>40); LDL Cholesterol Calculated 125 mg/dL (<100); Triglycerides 254 mg/dL (<150)
[2023-10-25 12:34] LABS: Free T4 (Free Thyroxine) 0.82 ng/dL (0.71-1.85); Thyroid Stimulating Hormone 3.55 uIU/mL (0.32-4.0)
== END 2023-10-25 07:44 | disposition home or self-care (01) ==
LOC: HO.HMGCLDS 07:43
PROVIDERS: PCP Internal Medicine; Visit Provider Internal Medicine
DX: E78.00 Pure hypercholesterolemia, unspecified (principal); R79.89 Other specified abnormal findings of blood chemistry
CPT/HCPCS: 36415; 80061; 84439; 84443

== ENCOUNTER 2024-09-06 06:54 | Outpatient (REF) | payer BC, SELFPAY ==
--- NOTE | ~2024-09-06 | XR_ITS ---
EXAMINATION: XR FEMUR, RIGHT CLINICAL INFORMATION: Pain. COMPARISON: None available. TECHNIQUE: AP and lateral views of the right femur were obtained. FINDINGS: No acute fracture or dislocation. Mild right hip joint space narrowing with small marginal osteophytes. No concerning lytic or blastic osseous lesion. No evidence of femoral head avascular necrosis. No abnormal soft tissue calcification. XR/XR femur RT 2V IMPRESSION: 1. No acute fracture or dislocation. 2. Mild right hip osteoarthritis. Electronically signed by: Marcus Gudino MD 09/06/2024 11:23 AM OMER
--- NOTE | ~2024-09-06 | XR_ITS ---
EXAMINATION: XR FOOT, RIGHT CLINICAL INFORMATION: Right foot pain. COMPARISON: None available. TECHNIQUE: AP, lateral, and oblique views of the right foot. FINDINGS: No acute fracture or dislocation. No joint space narrowing or marginal osteophytes. No osseous erosion. No tarsal coalition. Small plantar calcaneal spur. XR/XR foot RT min 3V IMPRESSION: 1. No acute osseous abnormality. 2. Small plantar calcaneal spur. Electronically signed by: Marcus Gudino MD 09/06/2024 11:23 AM OMER
[2024-09-06 08:03] LABS: Basophils Percent Auto 0.4 % (0-2); Eosinophils Absolute Auto 0.2 X10*3/uL (0.0-0.4); Eosinophils Percent Auto 2.3 % (0-4); Hematocrit 44.3 % (42.0-52.0); Hemoglobin 15.4 g/dl (14.0-18.0); Imm Gran Abs Auto 0.03 X10*3/uL (0.00-0.03); Imm Gran Pct Auto 0.4 % (0.0-0.4); Lymphocytes Absolute Auto 1.3 X10*3/uL (1.2-4.9); Lymphocytes Percent Auto 18.3 % (20-40); MANUAL DIFF FLAG NO; Mean Corpuscular HGB Conc 34.8 g/dl (31.0-36.0); Mean Corpuscular Hemoglobin 30.3 pg (27.0-33.0); Mean Corpuscular Volume 87.2 fL (80.0-98.0); Mean Platelet Volume 9.2 fL (9.4-12.4); Monocytes Absolute Auto 0.9 X10*3/uL (0.1-1.2); Monocytes Percent Auto 12.6 % (2-11); Neutrophils Absolute Auto 4.8 x10*3/uL (2.0-8.3); Platelet Count 238 X10*3/uL (160-400); Red Blood Count 5.08 X10*6/uL (4.60-5.80); Red Cell Distribution Width 12.2 % (11.0-16.0); White Blood Count 7.3 X10*3/uL (4.8-10.8)
[2024-09-06 08:09] LABS: Appearance Urine Clear; Color Urine Yellow; Glucose Urine UA Negative (Negative); Leukocyte Esterase Urine Negative (Negative); Nitrite Urine Negative (Negative); Urine Blood Negative (Negative); Urine Ketones Negative (Negative); Urine Protein Negative (Neg-Trace)
[2024-09-06 08:47] LABS: Alanine Aminotransferase 49 U/L (0-40); Albumin Level 4.1 g/dL (3.5-5.0); Alkaline Phosphatase 65 U/L (39-117); Anion Gap 12 (12-20); Aspartate Amino Transferase 37 U/L (5-37); Bilirubin Total 0.5 mg/dL (0.0-1.0); Blood Urea Nitrogen 18 mg/dL (9-16); Calcium 9.2 mg/dL (8.4-10.2); Carbon Dioxide 27 mmol/L (22-29); Chloride 107 mmol/L (96-108); Cholesterol 199 mg/dL (<200); Estimated Glomerular Filt Rate > 60; Glucose Fasting 109 mg/dL (60-99); HDL Cholesterol 34 mg/dL (>40); LDL Cholesterol Calculated 130 mg/dL (<100); Sodium 142 mmol/L (135-145); Triglycerides 175 mg/dL (<150)
[2024-09-06 09:05] LABS: Thyroid Stimulating Hormone 3.48 uIU/mL (0.32-4.0)
[2024-09-06 09:15] LABS: Prostate Specific Antigen 1.54 ng/mL (<0.05-4.0)
== END 2024-09-06 06:55 | disposition home or self-care (01) ==
LOC: HO.XRAY 06:54
PROVIDERS: PCP Internal Medicine; Visit Provider Internal Medicine
DX: I10 Essential (primary) hypertension (principal); E78.00 Pure hypercholesterolemia, unspecified; Z12.5 Encounter for screening for malignant neoplasm of prostate; E03.9 Hypothyroidism, unspecified; M79.651 Pain in right thigh
CPT/HCPCS: 36415; 73552; 73630; 80053; 80061; 81003; 84153; 84439; 84443; 85025

== ENCOUNTER 2024-09-23 14:07 | Outpatient (REF) | payer BC, SELFPAY ==
--- NOTE | ~2024-09-23 | US_ITS ---
EXAMINATION: US EXTRACRANIAL CAROTID DUPLEX, BILATERAL CLINICAL INFORMATION: Right carotid bruit COMPARISON: Carotid duplex January 28, 2014 TECHNIQUE: Real-time ultrasound and Doppler techniques (integrating B-mode 2-D vascular images, Doppler spectral analysis and color-flow Doppler imaging) were utilized to interrogate the extracranial carotid arteries, the vertebral arteries and proximal subclavian arteries bilaterally. The degree of stenosis is determined by criteria similar to NASCET. FINDINGS: Right Side: 1. There is no atherosclerotic plaque seen in the bifurcation/proximal ICA region. 2. The common carotid artery PSV proximally is 105 cm/s and distally 88 cm/s. 3. The proximal internal carotid artery velocities are 80 cm/s systolic and 20 cm/s diastolic. 4. The proximal external carotid artery PSV is 135 cm/s. 5. The vertebral artery shows antegrade flow. 6. The subclavian artery waveforms are normal. Left Side: 1. There is no atherosclerotic plaque seen in the bifurcation/proximal ICA region. 2. The common carotid artery PSV proximally is 126 cm/s and distally 73 cm/s. 3. The proximal internal carotid artery velocities are 52 cm/s systolic and 17 cm/s diastolic. 4. The proximal external carotid artery PSV is 100 cm/s. 5. The vertebral artery shows antegrade flow. 6. The subclavian artery waveforms are normal. US/US carotid duplex BI IMPRESSION: 1. RIGHT: Normal right internal carotid artery without atherosclerotic plaque or hemodynamically significant stenosis. 2. LEFT: Normal left internal carotid artery without atherosclerotic plaque or hemodynamically significant stenosis. 3. There is no change in the category severity of disease when compared to the previous study dated January 28, 2014. Electronically signed by: Celestino Cotsa MD 09/23/2024 04:42 PM [facility] [place]
== END 2024-09-23 14:08 | disposition home or self-care (01) ==
LOC: HO.US 14:07
PROVIDERS: PCP Internal Medicine; Visit Provider Internal Medicine
DX: I10 Essential (primary) hypertension (principal); R09.89 Other specified symptoms and signs involving the circulatory and respiratory systems
CPT/HCPCS: 93880

== ENCOUNTER 2025-05-09 10:26 | Outpatient (REF) | payer BC, SELFPAY ==
[2025-05-09 12:40] LABS: Alanine Aminotransferase 38 U/L (0-40); Albumin Level 4.2 g/dL (3.5-5.0); Alkaline Phosphatase 73 U/L (39-117); Anion Gap 11 (12-20); Aspartate Amino Transferase 28 U/L (5-37); Blood Urea Nitrogen 16 mg/dL (9-16); Calcium 8.3 mg/dL (8.4-10.2); Carbon Dioxide 28 mmol/L (22-29); Chloride 106 mmol/L (96-108); Cholesterol 181 mg/dL (<200); Estimated Glomerular Filt Rate > 60; HDL Cholesterol 39 mg/dL (>40); Potassium 4.0 mmol/L (3.3-5.1); Sodium 141 mmol/L (135-145); Total Protein 6.6 g/dL (6.5-8.0); Triglycerides 101 mg/dL (<150)
== END 2025-05-09 10:27 | disposition home or self-care (01) ==
LOC: HO.LAB 10:26
PROVIDERS: PCP Physician Assistant; Visit Provider Physician Assistant
DX: I10 Essential (primary) hypertension (principal); E03.8 Other specified hypothyroidism; E78.5 Hyperlipidemia, unspecified
CPT/HCPCS: 36415; 80048; 80061; 80076; 84443

== ENCOUNTER 2025-05-09 10:26 | Outpatient (AMB) | payer BC, SELFPAY ==
--- NOTE | 2025-05-09 10:26 | A.OFFPC_ITS ---
Vital Signs 05/09/25 10:30 Height 6 ft 2 in Weight 111.13 kg BMI 31.5 BP 130/84 Blood Pressure Location Lt brachial Position Sitting Respiration 16 Pulse 87 Pulse Source Pulse Oximeter Temp 97.8 F Temp Source Temporal Artery Scan Pulse Oximetry (%) 97 Oxygen Delivery Method Room Air Intake Visit Reasons: routine Director Of Market Analysis Required: No Accompanied by: Self / Same As Patient Allergies No Known Allergies (No Known Allergies*) Allergy (Verified 05/09/25 10:26) Tobacco use date assessed: 05/09/25 HPI HPI Comments History of Present Illness Details 59-year-old male with history of subclin ical hypothyroidism, hypertension, hyperlipidemia, tubular adenoma presents to the office today for management of chronic conditions and to establish care. Hypertension-compliant with amlodipine 5 mg and losartan 50 mg twice daily. Blood pressure in the office 130/84. Hyperlipidemia-not on statin any longer Subclinical hypothyroidism-was previously on levothyroxine 25 mcg daily but discontinued this. Euthyroid on last labs. Free T4 levels have always been within normal limits Tubular adenoma-last colonoscopy 2022 Concerns: He has been experiencing postnasal drip and occasional productive cough with white/yellow sputum production for several weeks. Accompanied by this, he has also been experiencing mild chest tightness but denies any retrosternal or crusting chest pains. Nonradiating and nonexertional. He has been taking antihistamines. No fevers, chills, sore throat, sinus pain, shortness of breath. Health maintenance: Last colonoscopy 2022 with 5 year follow-up advised due to tubular adenoma, Dr. Milligan Screening PSA up-to-date ROS: General: No fevers, malaise, unintentional weight loss HEENT: See HPI Cardiovascular: No chest pressure, palpitations, or leg edema Respiratory: See HPI GI: No abdominal pain, nausea, vomiting, diarrhea, constipation, melena, he matochezia : No dysuria, hematuria, increased urinary frequency, decreased urinary output MSK: No myalgia, back pain Neuro: No headaches, weakness, paresthesias Skin: No rashes or lesions EXAM: Constitutional - Awake and Alert, No apparent distress Eyes - PERRL Cardiovascular - S1S2, RRR, No edema Respiratory - Normal lung expansion, Normal respiratory effort, No respiratory distress, CTA bilaterally Extremities - no calf tenderness bilaterally, no swelling Skin - Warm/Dry Neurological - Alert & oriented x3 Psychological - Appropriate affect PFSH Medical History (Updated 05/09/25 @ 10:49 by ASHLEY Scott) Hyperlipidemia Subclinical hypothyroidism Hypothyroid KIMBERLY (obstructive sleep apnea) Hypertension Surgical History (Updated 05/06/25 @ 15:59 by Celestina Joseph) H/O colonoscopy (~12/06/22) [place] teeth extracted Gallstone History of knee surgery History of shoulder surgery History of tonsillectomy Family History Father Lung cancer Brother Esophageal cancer Social History Alcohol intake: current Alcohol intake frequency: holidays/special occasions only Alcohol type: beer, wine and hard liquor Comment: counts correct Patient Tobacco Use Status: Never used Tobacco e-Cigarette/Vaping Use: Never Used Second Hand Smoke Exposure: No Questionnaire PHQ-9 Over the last 2 weeks, how often have you been bothered by any of the following problems? 1. Little interest or pleasure in doing things: not at all 2. Feeling down, depressed, or hopeless: not at all 3. Trouble falling or staying asleep, or sleeping too much: not at all 4. Feeling tired or having little energy: not at all 5. Poor appetite or overeating: not at all 6. Feeling bad about yourself - or that you are a failure or have let yourself or your family down: not at all 7. Trouble concentrating on things, such as reading the newspaper or watching television: not at all 8. Moving or speaking so slowly that other people could have noticed. Or the opposite - being so fidgety or restless that you have been moving around a lot more than usual: not at all Source: Developed by Drs. Jerod Rodriguez, Lulu Desai, Jamie Sloan and colleagues, with an educational lucian from [employer]. Thrive Questionnaire Date Thrive assessed: 05/09/25 I am a: Patient What is your living situation today?: I have a steady place to live Within the past 12 months, did the food you bought not last and you didn't have the money to get more?: Never true Within the past 12 months, did you worry whether your food would run out before you got money to buy more?: Never true Do you have trouble paying for medicines?: No Do you have trouble getting transportation to medical appointments?: No Do you have trouble paying your heating and electricity bill?: No Do you have trouble taking care of your child, family member or friend?: No Do you have trouble with day-to-day activities such as bathing, preparing meals, shopping, managing finances, etc.?: No Are you currently unemployed and looking for a job?: No Are you interested in more education?: No THRIVE Score: 0 AUDIT C Alcohol Use Questionnaire (AUDIT-C) 1. How often do you have a drink containing alcohol?: 2-3 times a week 2. How many drinks containing alcohol do you have on a typical day when you are drinking?: 1 or 2 Total Score: 3 LENNIE-7 AMB Questionnaire LENNIE-7 Date LENNIE - 7 assessed: 05/09/25 Feeling nervous, anxious, or on edge: 0 = Not at all Not being able to stop or control worryin = Not at all Worrying too much about different things: 0 = Not at all Trouble relaxin = Not at all Being so restless that it is hard to sit still: 0 = Not at all Becoming easily annoyed or irritable: 0 = Not at all Feeling afraid as if something awful might happen: 0 = Not at all Total LENNIE-7 score (0-4 normal; 5-9 mild; 10-14 moderate; 15-21 severe): 0 Source: Developed by Drs. Jerod Rodriguez, Lulu Desai, Jamie Sloan and colleagues, with an educational lucian from [employer]. Physical exam (Primary Care) Vital Signs: Last Vital Signs Temp 97.8 F 05/09/25 10:30 Pulse 87 05/09/25 10:30 Resp 16 05/09/25 10:30 BP 130/84 05/09/25 10:30 Pulse Ox 97 05/09/25 10:30 Oxygen Delivery Method Room Air 05/09/25 10:30 BMI result Body Mass Index 31.5 Tobacco/Smoking Status: Tobacco use Status Tobacco use date assessed 05/09/25 05/09/25 10:33 Patient Tobacco Use Status Never used Tobacco 05/09/25 10:33 e-Cigarette/Vaping Use Never Used 05/09/25 10:33 Thrive Assessment: Date of Thrive Assessment Date Thrive assessed 05/09/25 05/09/25 10:47 Coding Level of Care Code New Pt Level 4 (48668) Complex EM visit Add On G2211 Diagnoses Hypertension I10 Hyperlipidemia E78.5 Subclinical hypothyroidism E03.8 Assessment & Plan Assessment & Plan (1) Hypertension: Code(s): I10 - Essential (primary) hypertension Category: Medical Plan: Controlled. Continue amlodipine 5 mg daily and losartan 50 mg twice daily. Low-sodium diet (2) Hyperlipidemia: Code(s): E78.5 - Hyperlipidemia, unspecified Category: Medical Plan: Lipid panel ordered. ASCVD risk score to be calculated pending results of studies, statin may be recommended. Recommend diet low in saturated fats and highly processed foods as well as weight loss efforts. (3) Subclinical hypothyroidism: Code(s): E03.8 - Other specified hypothyroidism Category: Medical Plan: TSH with reflex free T4 ordered Plan Follow-up in the office in 6 months for annual physical exam. Labs to be completed following visit today as well as prior to next visit Orders: Orders Basic Metabolic Panel Today E03.8 - Other specified hypothyroidism, E78.5 - Hyperlipidemia, unspecified, I10 - Essential (primary) hypertension Basic Metabolic Panel 6 Months E03.8 - Other specified hypothyroidism, E78.5 - Hyperlipidemia, unspecified, I10 - Essential (primary) hypertension, Z00.00 - Encounter for general adult medical examination without abnormal findings Prostate Specific Antigen 6 Months E03.8 - Other specified hypothyroidism, E78.5 - Hyperlipidemia, unspecified, I10 - Essential (primary) hypertension, Z00.00 - Encounter for general adult medical examination without abnormal findings Liver Panel 6 Months E03.8 - Other specified hypothyroidism, E78.5 - Hyperlipidemia, unspecified, I10 - Essential (primary) hypertension, Z00.00 - Encounter for general adult medical examination without abnormal findings TSH reflex Free T4 6 Months E03.8 - Other specified hypothyroidism, E78.5 - Hyperlipidemia, unspecified, I10 - Essential (primary) hypertension, Z00.00 - Encounter for general adult medical examination without abnormal findings Lipid Panel Today E03.8 - Other specified hypothyroidism, E78.5 - Hyperlipidemia, unspecified, I10 - Essential (primary) hypertension Liver Panel Today E03.8 - Other specified hypothyroidism, E78.5 - Hyperlipidemia, unspecified, I10 - Essential (primary) hypertension TSH reflex Free T4 Today E03.8 - Other specified hypothyroidism, E78.5 - Hyperlipidemia, unspecified, I10 - Essential (primary) hypertension Lipid Panel 6 Months E03.8 - Other specified hypothyroidism, E78.5 - Hyperlipidemia, unspecified, I10 - Essential (primary) hypertension, Z00.00 - Encounter for general adult medical examination without abnormal findings Complete Blood Count Auto Diff 6 Months E03.8 - Other specified hypothyroidism, E78.5 - Hyperlipidemia, unspecified, I10 - Essential (primary) hypertension, Z00.00 - Encounter for general adult medical examination without abnormal findings Hemoglobin A1c 6 Months E03.8 - Other specified hypothyroidism, E78.5 - Hyperlipidemia, unspecified, I10 - Essential (primary) hypertension, Z00.00 - Encounter for general adult medical examination without abnormal findings Medications: Refilled amlodipine 5 mg PO DAILY 90 tabs 1RF losartan 50 mg PO BID 180 tabs 1RF
[2025-05-09 10:30] VITALS: BP 130/84; PULSE 87; RESP 16; TEMP 36.6; O2SAT 97; BMI 31.5
--- OUTSIDE RECORDS SUMMARY | 2025-05-09 10:56 | XMS_ITS | Patient Health Record ---
Author Organization [facility] Address [address] [place] [address] Care Team Providers Care Senior Wind Turbine Technician Name Role Phone Rex Velásquez MD Primary Care Provider Jerod Almazan Unavailable [phone] Allergies No Known Allergies Reason For Referral No Information Medications Medication SIG (Take, Route, Frequency, Duration) Notes Start Date End Date Status Allergy 4 MG 1 tablet as needed O rally every 6 hrs Active Losartan Potassium 50 MG TAKE 1 TABLET B Y MOUTH TWICE A DAY Oral for 90 Active amLODIPine Besylate 5 MG Oral for 90 Active Immunizations Vaccine Route Administration Date Status Comme nts Influenza Unknown 10/06/2022 Refused Problems Problem Type SNOMED Code ICD Code Onset Dates Problem Status W/U Status Risk Notes Problem 361318711 Encounter for screening for malignant neoplasm of colon (Z12.11) Active confirmed Problem History of adenomatous polyp of colon (212080188) History of adenomatous polyp of colon (Z86.010) Active confirmed Problem History of polyp of colon (situation) (590786587) Personal history of colonic polyps (Z86.010) Active confirmed Problem Diverticulosis o f large intestine without perforation or abscess without bleeding (K57.30) Active confirmed Problem Screening for malignant neoplasm of rectum (356444395) Encounter for screening for malignant neoplasm of rectum (Z12.12) Active confirmed Problem 283268398 Elevated liver function tests (R79.89) Active confirmed Problem 93990060 Preprocedural examination (Z01.818) Active confirmed Problem 647785180 Gallstones (K80.20) Active confirmed Plan Of Treatment Pending Test Test Name Order Date Pathology 12/05/2022 Future Test Test Name Order Date COLONOSCOPY 11/18/2016 COLONOSCOPY 10/06/2022 Insurance Providers Payer Name Payer Address Payer Phone Subscriber Number Group Number Insured Name Patient Relationship to Insured Coverage Start Date Coverage End Date [employer] [address] [place] [phone] [id number] ASHLEY SANCHEZ Self - patient is the insured [facility] [address] [place] [address] [id number] ASHLEY SANCHEZ Self - patient is the insured Medical (General) History Medical History History ICD Code Denies MT,DM,CVA,Lung disease,renal dise ase Sleep apnea--doesn't use the CPAP or nasal BiPAP due to his intolerance to the machines--he does do a lot of snoring Hypertension Gallstone on 12/2021 U/S Transiently elevated liver e nzymes of unclear etiology in November of 2021, but with spontaneous normalization in December of 2021. He had negative hepatitis B and C studies. He was found to have a gallstone on the ultrasound but was not having any pain nor any other symptoms. He describes having seen a surgeon but was advised that he would not need surgery as he was asymptomatic at that time Screening colonoscopy in Jan with the removal of a small tubular adenoma Surgical History Surgery Date(Month/Year) left shoulder 1990 left knee 2001 tonsillectomy oral surgery wisdom teeth shoulder right 02/2021 right knee
--- OUTSIDE RECORDS SUMMARY | 2025-05-09 10:56 | XMS_ITS | Clinical Summary ---
Author Organization [address] [place] [address] Address [address] [place] [address] Phone Care Team Providers Care Termite Treater Helper Name Role Phone Rex Velásquez MD Primary Care Provider [phone] Allergies No known active allergies Social History Tobacco Use Types Packs/Day Years Used Date Smoking Tobacco: Never Assessed Sex and Gender Information Value Date Recorded Sex Assigned at Not on file Legal Sex Male 6:59 AM EST Gender Identity Not on file Sexual Orientation Not on file Last Filed Vital Signs Vital Sign Reading Time Taken Comments Blood Pressure - - Pulse - - Temperature - - Respiratory Rate - - Oxygen Saturation - - Inhaled Oxygen Concentration - - Weight 110 kg (242 lb) 12/11/2024 8:57 AM EST Height 188 cm (6' 2 ) 12/11/2024 8:57 AM EST Body Mass Index 31.07 12/11/2024 8:57 AM EST Plan of Treatment Health Maintenance Due Date Last Done Comments DTaP,Tdap,and Td Vaccines (1 - Tdap) 1985 Hepatitis B Vaccines (1 of 3 - 19+ 3-dose series) 1985 Pneumococcal Vaccine: 50+ Years (1 of 1 - PCV) 2016 Zoster Vaccines (1 of 2) 2016 COVID-19 Vaccine ( - 2023-2 5 season) 2024 03/06/2021, 02/13/2021 Cholesterol Screening (Lipid Panel) 10/08/2024 Colorectal Cancer Screening: Colonoscopy 10/08/2024 Depression Screening 10/08/2024 HIV Screening 10/08/2024 Hepatitis C Screening 10/08/2024 Social Influencers of Health Screening 10/08/2024 Influenza Vaccine (#1) 2025 HIB Vaccines Aged Out No longer eligi ble based on patient's age to complete this topic HPV Vaccines Aged Out No longer eligi ble based on patient's age to complete this topic Hepatitis A Vaccines Aged Out No long er eligible based on patient's age to complete this topic IPV Vaccines Aged Out No longer eligi ble based on patient's age to complete this topic MMR Vaccines Aged Out No longer eligi ble based on patient's age to complete this topic Meningococcal ACWY Vaccine Aged Out N o longer eligible based on patient's age to complete this topic Meningococcal B Vaccine Aged Out No l onger eligible based on patient's age to complete this topic RSV Immunization Patients Under 20 months Aged Out No longer eligible b ased on patient's age to complete this topic Varicella Vaccines Aged Out No longer eligible based on patient's age to complete this topic Insurance Care Teams Termite Treater Helper Relationship Specialty Start Date End Date Rex Velásquez MD [address] [place] [address] Dr Sarika [place] PCP - General Internal Medicine 10/08/24
--- OUTSIDE RECORDS SUMMARY | 2025-05-09 10:56 | XMS_ITS | Clinical Summary ---
Author Organization [facility] Address [address] [place] [id number] Care Team Providers Care Airline Customer Service Agent Name Role Phone Pcp, No Primary Care Provider Unavailabl e Allergies No known active allergies Medications No known medications Active Problems No known active problems Immunizations Immunization Administration Dates Next Due Covid-19 MRNA Vaccine - Pfizer 12+ (Purple Cap) 03/06/2021,02/13/2021 Social History Tobacco Use Types Packs/Day Years Used Date Smoking Tobacco: Never Smokeless Tobacco: Never Alcohol Use Standard Drinks/Week Comments Not Currently 0 (1 standard drink = 0.6 oz pur e alcohol) Sex and Gender Information Value Date Recorded Sex Assigned at Not on file Legal Sex Male 11:21 AM EDT Gender Identity Not on file Sexual Orientation Not on file Last Filed Vital Signs Vital Sign Reading Time Taken Comments Blood Pressure 174/105 06/28/2020 12:12 PM EDT Pulse 74 06/28/2020 11:56 AM EDT Temperature 36.6 C (97.9 F) 06/28/2020 11:56 AM EDT Respiratory Rate - - Oxygen Saturation 96% 06/28/2020 11:56 AM EDT Inhaled Oxygen Concentration - - Weight 104 kg (230 lb) 06/28/2020 11:56 AM EDT Height 188 cm (6' 2 ) 06/28/2020 11:56 AM EDT Body Mass Index 29.53 06/28/2020 11:56 AM EDT Plan of Treatment Health Maintenance Due Date Last Done Comments Hepatitis C Virus Screening 1966 HIV Screening 1979 DTaP/Tdap/Td Vaccines (1 - Tdap) 1985 Hepatitis B Vaccines (1 of 3 - 19+ 3-dose series) 1985 Colonoscopy 2011 Pneumococcal Vaccines 50+ (1 of 1 - PCV) 2016 Zoster (Shingles) Vaccine (1 of 2) 2016 COVID-19 Vaccine ( season) 2024 11/01/2021, 03/06/2021, 02/13/2021 Influenza Vaccine 05/30/2025 Insurance BLUE CROSS [place] PPO BLUE CROSS OUT OF [facility] - [place] BLUE CROSS OUT OF [facility] Care Teams Airline Customer Service Agent Relationship Specialty Start Date End Date Pcp, No PCP - General General Medicine 06/29/20
== END 2025-05-09 10:47 | disposition home or self-care (01) ==
LOC: HO.HMCHD 10:26
PROVIDERS: PCP Internal Medicine; Visit Provider Physician Assistant
DX: I10 Essential (primary) hypertension (principal); E78.5 Hyperlipidemia, unspecified; E03.8 Other specified hypothyroidism

== ENCOUNTER 2025-08-27 10:20 | Outpatient (AMB) | payer BC, SELFPAY ==
--- NOTE | 2025-08-27 09:53 | MHC.PC.OV ---
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: No Accompanied by: Self / Same As Patient Allergies No Known Allergies (No Known Allergies*) Allergy (Verified 08/27/25 09:53) Tobacco use date assessed: 05/09/25 Dental Screening Dental Screen Date: 08/27/25 Did you have a dental visit in the last 12 months?: Yes Did you have a dental problem in the last 6 months where you did not have access to dental care?: No Was dental information given to patient?: Patient has dentist HPI HPI Comments History of Present Illness Details 59-year-old male with history of subclinical hypothyroidism, hypertension, hyperlipidemia, tubular adenoma presents to the office today for management of chronic conditions and to establish care. Hypertension-compliant with amlodipine 5 mg and losartan 50 mg twice daily. Blood pressure in the office 130/84. Hyperlipidemia-not on statin any longer Subclinical hypothyroidism-was previously on levothyroxine 25 mcg daily but discontinued this. Euthyroid on last labs. Free T4 levels have always been within normal limits Tubular adenoma-last colonoscopy 2022 Concerns: R thigh numbness constant. Walking or sitting or standing for prolonged periods gets sharp pain/burning sensation. Affects the lateral aspect of the thigh. Not to fit. Ongoing about 1 year, worsening last few months. XR right hip shows mild OA. No injury known. No back pain. Was walking several miles per day (4.5-5m) but this would exacerbate pain. Used to lift weights but has not in several years. 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 At worst 7/10 with prolonged standing, felt a painful sensation and weakness. At baseline, just numb. Rests does help, not taking anything. Health maintenance: Last colonoscopy 2022 with 5 year follow-up advised due to tubular adenoma, Dr. Milligan Screening PSA up-to-date ROS: G see HPI EXAM: Constitutional - Awake and Alert, No apparent distress Eyes - PERRL Cardiovascular - S1S2, RRR, No edema . 2+ pedal pulses, extremity warm with appropriate capillary refill Respiratory - Normal lung expansion, Normal respiratory effort, No respiratory distress, CTA bilaterally MSK-no midline or paraspinal tenderness to palpation or tenderness over the SI joint. No tenderness over the hip joint. Full ROM R hip. Negative straight leg raises. 5/5 strength of the BLE. Lateral thigh nttp. 2+ patellar reflexes Extremities - no calf tenderness bilaterally, no swelling Skin - Warm/Dry Neurological - Alert & oriented x3 Psychological - Appropriate affect PFSH Medical History (Updated 08/27/25 @ 10:51 by ASHLEY Scott) Hyperlipidemia Subclinical hypothyroidism Hypothyroid KIMBERLY (obstructive sleep apnea) Hypertension Surgical History (Updated 05/06/25 @ 15:59 by Celestina Joseph) H/O colonoscopy (~12/06/22) [place] teeth extracted Gallstone History of knee surgery History of shoulder surgery History of tonsillectomy Family History Father Lung cancer Brother Esophageal cancer Social History Housing: House Alcohol intake: current Alcohol intake frequency: holidays/special occasions only Alcohol type: beer, wine and hard liquor Comment: counts correct Patient Tobacco Use Status: Never used Tobacco e-Cigarette/Vaping Use: Never Used Second Hand Smoke Exposure: No service: No Current occupational status: employed Current occupation: [employer] Questionnaire Thrive Questionnaire Date Thrive assessed: 05/09/25 AUDIT C Alcohol Use Questionnaire (AUDIT-C) 1. How often do you have a drink containing alcohol?: Monthly or less 2. How many drinks containing alcohol do you have on a typical day when you are drinking?: 1 or 2 Total Score: 1 LENNIE-7 AMB Questionnaire LENINE-7 Date LENNIE - 7 assessed: 05/09/25 Source: Developed by Drs. Jerod Rodriguez, Lulu Desai, Jamie Sloan and colleagues, with an educational lucian from [employer]. Physical exam (Primary Care) Vital Signs: Last Vital Signs Temp 97.9 F 08/27/25 10:26 Pulse 72 08/27/25 10:26 Resp 18 08/27/25 10:26 BP 144/88 H 08/27/25 10:26 Pulse Ox 97 08/27/25 10:26 Oxygen Delivery Method Room Air 08/27/25 10:26 BMI result Body Mass Index 33.2 Tobacco/Smoking Status: Tobacco use Status Tobacco use date assessed 05/09/25 08/27/25 09:53 Patient Tobacco Use Status Never used Tobacco 08/27/25 09:53 e-Cigarette/Vaping Use Never Used 08/27/25 09:53 Thrive Assessment: Date of Thrive Assessment Date Thrive assessed 05/09/25 08/27/25 09:53 Coding Level of Care Code Est Pt Level 4 (92140) Complex EM visit Add On G2211 Diagnoses 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 Can continue rest, ibuprofen as needed. Weight loss efforts. Referred to physiatry as well as to physical therapy. Patient with concerned about PAD given family history. Given associated symptoms, check arterial duplex, however pedal pulses 2+ (2) Hypertension: Code(s): I10 - Essential (primary) hypertension Category: Medical Plan: Borderline. Continue losartan 50 mg twice daily and amlodipine 5 mg daily. Does have a blood pressure cuff at home. Advised to check blood pressures with goal less than 140/90. If blood pressures are elevated above this, reach out to the office and can adjust medications. (3) Hyperlipidemia: Code(s): E78.5 - Hyperlipidemia, unspecified Category: Medical Plan: Lipid panel ordered. ASCVD risk score to be calculated pending results of studies. Diet low in saturated fats and highly processed foods, weight loss efforts and recommend resuming exercise routine Plan Follow-up as scheduled, labs prior to visit Orders: Orders PT Evaluation and Treatment Today G57.10 - Meralgia paresthetica, unspecified lower limb, R20.2 - Paresthesia of skin US arterial duplex LE RT Today M79.606 - Pain in leg, unspecified Referrals Physiatry Referral G57.10 - Meralgia paresthetica, unspecified lower limb, R20.2 - Paresthesia of skin
[2025-08-27 10:26] VITALS: BP 144/88; PULSE 72; RESP 18; TEMP 36.6; O2SAT 97; BMI 33.2
--- OUTSIDE RECORDS SUMMARY | 2025-08-27 12:48 | XMS_ITS | Patient Health Record ---
Author Organization [facility] Address [address] [place] [address] Care Team Providers Care Surveying Crew Rodman Name Role Phone Didier (RETIRED) Rex AMBROSE Primary Care Provide r Unavailable Jerod Valdes Unavailable [phone] Allergies No Known Allergies Reason For Referral No Information Medications Medication SIG (Take, Route, Frequency, Duration) Notes Start Date End Date Status Allergy 4 MG 1 tablet as needed O rally every 6 hrs Active Losartan Potassium 50 MG TAKE 1 TABLET B Y MOUTH TWICE A DAY Oral; Duration: 90 Active amLODIPine Besylate 5 MG Oral; Duration: 90 Active Immunizations Vaccine Route Administration Date Status Comme nts Influenza Unknown 10/06/2022 Refused Problems Problem Type SNOMED Code ICD Code Onset Dates Problem Status W/U Status Risk Notes Problem Screening for malignant neoplasm of colon (825233790) Encounter for screening for malignant neoplasm of colon (Z12.11) Active confirmed Problem History of adenomatous polyp of colon (571154030) History of adenomatous polyp of colon (Z86.010) Active confirmed Problem History of polyp of colon (situation) (471311652) Personal history of colonic polyps (Z86.010) Active confirmed Problem Diverticular disease of colon (070509752) Diverticulosis of large intestine without perforation or abscess without bleeding (K57.30) Active confirmed Problem Screening for malignant neoplasm of rectum (634105452) Encounter for screening for malignant neoplasm of rectum (Z12.12) Active confirmed Problem Elevated liver enzymes level (516922997) Elevated liver function tests (R79.89) Active confirmed Problem Preprocedural examination (657407960541549) Preprocedural examination (Z01.818) Active confirmed Problem Gallstones (745540550) Gallstones (K80.20) Active confirmed Plan Of Treatment Pending Test Test Name Order Date Pathology 12/05/2022 Future Test Test Name Order Date COLONOSCOPY 11/18/2016 COLONOSCOPY 10/06/2022 Insurance Providers Payer Name Payer Address Payer Phone Subscriber Number Group Number Insured Name Patient Relationship to Insured Coverage Start Date Coverage End Date EBEN RANGEL/[employer] [address] [place] [address] [id number] ASHLEY SANCHEZ Self - patient is the insured [facility] [address] [place] [address] [phone] [id number] LAURA ASHLEY Self - patient is the insured Medical (General) History Medical History History ICD Code Denies [place],DM,CVA,Lung disease,renal dise ase Sleep apnea--doesn't use the [...]
--- OUTSIDE RECORDS SUMMARY | 2025-08-27 12:48 | XMS_ITS | Encounter Summary ---
Author Organization [facility] Address [address] [place] [address] Care Team Providers Care Driftman Name Role Phone Pcp, No Primary Care Provider Unavailabl e Encounter Details Date Type Department Care Team (Latest Contact Info) Description [facility] [facility] [facility] [address] [place] [address] [address] [place] [address] Zack Simons PA-C [address] [place] [phone] Encounter for laboratory testing for COVID-19 virus Social History Tobacco Use Types Packs/Day Years Used Date Smoking Tobacco: Never Smokeless Tobacco: Never Alcohol Use Standard Drinks/Week Comments Not Currently 0 (1 standard drink = 0.6 oz pur e alcohol) Sex and Gender Information Value Date Recorded Sex Assigned at Not on file Legal Sex Male 11:21 AM EDT Gender Identity Not on file Sexual Orientation Not on file COVID-19 Exposure Response Date Recorded In the last month, have you been in contact with someone who was confirmed or suspected to have Coronavirus / COVID-19? No / Unsure 11/16/2020 10:47 AM EST documented as of this encounter Plan of Treatment Not on file documented as of this encounter Procedures Procedure Name Priority Date/Time Associated Diagnosis Comments COVID-19 (SARS-COV-2) - SEMA4 LAB Routine 11/16/2020 11:18 AM EST Encounter for laboratory testing for COVID-19 virus [ICD-10-CM] documented in this encounter Results * COVID-19 (SARS-COV-2) (SEMA4) (11/16/2020 11:18 AM EST) COVID-19 RT-PCR NOT-DETEC SHARONA Not-Detec sharona 11/17/2020 6:15 PM EST [facility] Comment:Interpretation: The viral RNA was not detected, making the COVID-19 diagnosis less likely. Clinical correlation is highly recommended.Final report signed by Carson Cortez, Ph.D., Laboratory DirectorTests performed at [facility] Nasopharyngeal swab / Unknown 11/16/2020 11:18 AM EST 11/16/2020 11:18 AM EST Narrative [facility] Jessica OLIVAR[facility] - 11/17/2020 6:15 PM EST Performed by [facility] [address] [place] [address], CLIA# [id number] and [place] License# [id number] Zack Simons PA-C MICROBIOLOGY - GENERAL OR DERABLES Final Result [facility] documented in this encounter Visit Diagnoses Diagnosis Encounter for laboratory testing for COVID-19 virus documented in this encounter Care Teams Driftman Relationship Specialty Start Date End Date Pcp, No PCP - General General Medicine 06/29/20 documented as of this encounter
--- OUTSIDE RECORDS SUMMARY | 2025-08-27 12:48 | XMS_ITS | Clinical Summary ---
Author Organization [address] [place] [address] [address] [place] [address] Phone Care Team Providers Care Speech Lang Path Therapist Name Role Phone Rxe Velásquez MD Primary Care Provider [phone] Allergies No known active allergies Social History [...] Health Maintenance Due Date Last Done Comments Colorectal Cancer Screening: Colonoscopy 1966 DTaP,Tdap,and Td Vaccines (1 - Tdap) 1985 Hepatitis B Vaccines (1 of 3 - 19+ 3-dose series) 1985 Pneumococcal Vaccine: 50+ Years (1 of 1 - PCV) 2016 Zoster Vaccines (1 of 2) 2016 Cholesterol Screening (Lipid Panel) 10/08/2024 HIV Screening 10/08/2024 Hepatitis C Screening 10/08/2024 Social Influencers of Health Screening 10/08/2024 Depression Screening 10/30/2024 COVID-19 Vaccine (3 - 2024-2 6 season) 2025 03/06/2021, 02/13/2021 Influenza Vaccine (#1) 2025 RSV Immunization Adult Patients (1 - 1-dose 75+ series) 2041 HIB Vaccines Aged Out No longer eligi [...] patient's age to complete this topic Insurance [place] [address] Care Teams Speech Lang Path Therapist Relationship Specialty Start Date End Date Rex Velásquez MD [address] [place] [address] Dr Baum [place] PCP - General Internal Medicine 10/08/24
--- OUTSIDE RECORDS SUMMARY | 2025-08-27 12:48 | XMS_ITS | Encounter Summary ---
Author Organization [facility] Address [address] [place] [address] Care Team Providers Care Rv Service Technician Name Role Phone Pcp, No Primary Care Provider Unavailabl e Encounter Details Date Type Department Care Team (Latest Contact Info) Description 11/05/[address] [facility] [address] [place] [address] [address] [place] [address] Zack Simons PA-C [address] [place] [address] [phone] Encounter for laboratory testing for COVID-19 virus [...] on file Sexual Orientation Not on file documented as of this encounter Plan of Treatment Not on file documented as of this encounter Procedures Procedure Name Priority Date/Time Associated Diagnosis Comments COVID-19 (SARS-COV-2) - SEMA4 LAB Routine 11/05/2020 11:23 AM EST Encounter for laboratory testing for COVID-19 virus [ICD-10-CM] documented in this encounter Results * COVID-19 (SARS-COV-2) (SEMA4) (11/05/2020 11:23 AM EST) COVID-19 RT-PCR NOT-DETEC SHARONA Not-Detec sharona 11/07/2020 8:23 AM EST [facility] - [facility] Comment:Interpretation: The viral RNA was not detected, making the COVID-19 diagnosis less likely. Clinical correlation is highly recommended.Final report signed by Lore Tillman, Ph.D., Laboratory DirectorTests performed at [facility] Nasopharyngeal swab / Unknown 11/05/2020 11:23 AM EST 11/05/2020 11:23 AM EST Narrative [facility] - 11/07/2020 8:23 AM EST Performed by [facility] [address] [place] [address], CLIA# [id number] and [place] License# [id number] Zack Simons PA-C MICROBIOLOGY - GENERAL OR DERABLES Final Result [facility] documented in this encounter Visit Diagnoses Diagnosis Encounter for laboratory testing for COVID-19 virus documented in this encounter Care Teams Rv Service Technician Relationship Specialty Start Date End Date Pcp, No PCP - General General Medicine 06/29/20 documented as of this encounter
--- OUTSIDE RECORDS SUMMARY | 2025-08-27 12:48 | XMS_ITS | Clinical Summary ---
Author Organization [facility] Address [address] [place] [address] Care Team Providers Care Credit Verification Clerk Name Role Phone Pcp, No Primary Care [...] Zoster (Shingles) Vaccine (1 of 2) 2016 Influenza Vaccine 05/30/2025 COVID-19 Vaccine ( season) 2025 11/01/2021, 03/06/2021, 02/13/2021 RSV Vaccine 50 years and old er and Patients (1 - 1-dose 75+ series) 2041 Insurance [employer] [facility] PPO [employer] [facility] - PPO [employer] OUT OF [facility] - O Care Teams Credit Verification Clerk Relationship Specialty Start Date End Date Pcp, No PCP - General General Medicine 06/29/20
== END 2025-08-27 12:56 | disposition home or self-care (01) ==
LOC: HO.HMCHD 10:20
PROVIDERS: PCP Physician Assistant; Visit Provider Physician Assistant
DX: G57.10 Meralgia paresthetica, unspecified lower limb (principal); I10 Essential (primary) hypertension; E78.5 Hyperlipidemia, unspecified

== ENCOUNTER 2025-10-07 07:56 | Outpatient (AMB) | payer BC, SELFPAY ==
--- NOTE | 2025-10-07 08:05 | MHC.PC.OV ---
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: No Accompanied by: Self / Same As Patient Allergies No Known Allergies (No Known Allergies*) Allergy (Verified 10/07/25 08:05) Medication List - Last Reconciled 10/07/25 by ASHLEY Scott amlodipine 5 mg PO BID loratadine (Claritin) 10 mg PO DAILY losartan 50 mg PO BID Tobacco use date assessed: 10/07/25 Dental Screening Dental Screen Date: 10/07/25 Did you have a dental visit in the last 12 months?: Yes Did you have a dental problem in the last 6 months where you did not have access to dental care?: No Was dental information given to patient?: Patient has dentist HPI HPI Comments History of Present Illness Details 59-year-old male with history of subclinical hypothyroidism, hypertension, hyperlipidemia, tubular adenoma presents to the office today for management of chronic conditions and for annual physical exam. Lives at home with his who recently had back surgery and will need bilateral hip replacement. 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 No formal exercise struggles with long hours at works. Follows with healthy diet. Alcohol 3 days per week. No Illicit drugs or marijuana. history of smokeless tobacco smoking. Hypertension-compliant with amlodipine 5 mg and losartan 50 mg twice daily. Blood pressure in the office has been in the 140's/90s, uncontrolled here with BP 160/100 Hyperlipidemia-not on statin any longer Subclinical hypothyroidism-was previously on levothyroxine 25 mcg daily but discontinued this. Euthyroid on last labs. Free T4 levels have always been within normal limits' Smokeless tobacco years quit 13 years ago Obesity-BMI 33. As above Concerns: None Bilateral lower extremities paresthesias with hip pain-orthopedic appointment 12/2025, on cancellation list Health maintenance: Tubular adenoma-last colonoscopy 2022 Overdue for eye exam Dental exams twice yearly PSA up-to-date None Health maintenance: Last colonoscopy 2022 with 5 year follow-up advised due to tubular adenoma, Dr. Milligan Screening PSA up-to-date ROS: General: No fevers, malaise, unintentional weight loss HEENT: No blurred vision, diplopia. No sore throat, nasal congestion, rhinorrhea, sinus pain, ear pain. No hearing loss Neck - no adenopathy Cardiovascular: No chest pain, palpitations, or leg edema Respiratory: No shortness of breath, wheezing, cough GI: No dysphagia, odynophagia, globus sensation. No abdominal pain, nausea, vomiting, diarrhea, constipation, melena, hematochezia : No dysuria, hematuria, increased urinary frequency, decreased urinary output. No testicular swelling or pain. No penile discharge MSK: No myalgia, back pain, arthralgias. see hpi Neuro: No headaches, weakness, paresthesias Psych: no depression/anxiery. No AH/VH. No SI/HI Skin: No rashes or lesions EXAM: Constitutional - Awake and Alert, No apparent distress Eyes - PERRLA, EOMI. Anicteric Ears - external ears normal, canals clear, TMs intact and pearly enamorado with good cone of light Nose- septum midline, nares clear, no sinus tenderness Mouth/throat- mucosa moist, tongue and uvula midline, no erythema/edema or tonsillar adenopathy. Neck-trachea midline, thyroid symmetric without palpable nodules, no adenopathy Cardiovascular - S1S2, RRR, No edema Respiratory - Normal lung expansion, Normal respiratory effort, No respiratory distress, CTA bilaterally Gastrointestinal - NT / ND; +BS; No rebound or guarding - No CVA tenderness Extremities - no calf tenderness bilaterally, no swelling Musculoskeletal - Normal inspection, normal ROM Skin - Warm/Dry, no concerning lesions Neurological - Alert & oriented x3, CN II-XII in tact, 5/5 strength BUE and BLE, 2+ patellar reflexes, sensation intact Psychological - Appropriate affect PFSH Medical History Hyperlipidemia Subclinical hypothyroidism Hypothyroid KIMBERLY (obstructive sleep apnea) Hypertension Surgical History S/P cholecystectomy H/O colonoscopy (~12/06/22) [place] teeth extracted Gallstone History of knee surgery History of shoulder surgery History of tonsillectomy Family History Father Lung cancer Diabetes Myocardial infarction Brother Esophageal cancer Social History Housing: House Alcohol intake: current Alcohol intake frequency: holidays/special occasions only Alcohol type: beer, wine and hard liquor Comment: counts correct Patient Tobacco Use Status: Never used Tobacco e-Cigarette/Vaping Use: Never Used Second Hand Smoke Exposure: No service: No Current occupational status: employed Current occupation: [employer] Cognitive needs: No Hearing needs: No Vision needs: No Questionnaire PHQ-9 Over the last 2 weeks, how often have you been bothered by any of the following problems? 1. Little interest or pleasure in doing things: not at all 2. Feeling down, depressed, or hopeless: not at all 3. Trouble falling or staying asleep, or sleeping too much: not at all 4. Feeling tired or having little energy: not at all 5. Poor appetite or overeating: not at all 6. Feeling bad about yourself - or that you are a failure or have let yourself or your family down: not at all 7. Trouble concentrating on things, such as reading the newspaper or watching television: not at all 8. Moving or speaking so slowly that other people could have noticed. Or the opposite - being so fidgety or restless that you have been moving around a lot more than usual: not at all 9. Thoughts that you would be better off or of hurting yourself in some way: not at all Total score: 0 Depression Screening Interpretation: Negative Depression Screening Done: Yes 98183 - PHQ-9 Billing: Yes Source: Developed by Drs. Jerod Rodriguez, Lulu Desai, Jamie Sloan and colleagues, with an educational lucian from [employer]. Thrive Questionnaire Date Thrive assessed: 05/09/25 I am a: Patient What is your living situation today?: I have a steady place to live Within the past 12 months, did the food you bought not last and you didn't have the money to get more?: Never true Within the past 12 months, did you worry whether your food would run out before you got money to buy more?: Never true Do you have trouble paying for medicines?: No Do you have trouble getting transportation to medical appointments?: No Do you have trouble paying your heating and electricity bill?: No Do you have trouble taking care of your child, family member or friend?: No Do you have trouble with day-to-day activities such as bathing, preparing meals, shopping, managing finances, etc.?: No Are you currently unemployed and looking for a job?: No Are you interested in more education?: No Please select the resources that you would like help with: None Currently or been in a relationship where the following occur: No concerns reported THRIVE Score: 0 AUDIT C Alcohol Use Questionnaire (AUDIT-C) 2. How many drinks containing alcohol do you have on a typical day when you are drinking?: 1 or 2 3. How often do you have six or more drinks on one occasion?: Never Total Score: 0 LENNIE-7 AMB Questionnaire LENNIE-7 Date LENNIE - 7 assessed: 05/09/25 Feeling nervous, anxious, or on edge: 1 = Several days Not being able to stop or control worryin = Several days Worrying too much about different things: 1 = Several days Trouble relaxin = Several days Being so restless that it is hard to sit still: 0 = Not at all Becoming easily annoyed or irritable: 1 = Several days Feeling afraid as if something awful might happen: 0 = Not at all Total LENNIE-7 score (0-4 normal; 5-9 mild; 10-14 moderate; 15-21 severe): 5 Source: Developed by Drs. Jerod Rodriguez, Lulu Desai, Jamie Sloan and colleagues, with an educational lucian from [employer]. Physical exam (Primary Care) Vital Signs: Last Vital Signs Temp 98.0 F 10/07/25 08:08 Pulse 78 10/07/25 08:08 Resp 14 10/07/25 08:08 BP 148/90 H 10/07/25 08:08 Pulse Ox 98 10/07/25 08:08 Oxygen Delivery Method Room Air 10/07/25 08:08 BMI result Body Mass Index 33.0 Tobacco/Smoking Status: Tobacco use Status Tobacco use date assessed 10/07/25 10/07/25 08:10 Patient Tobacco Use Status Never used Tobacco 10/07/25 08:10 e-Cigarette/Vaping Use Never Used 10/07/25 08:10 Depression Screening Interpretation: Negative Thrive Assessment: Date of Thrive Assessment Date Thrive assessed 05/09/25 10/07/25 08:10 Currently or been in a relationship where the following occur: No concerns reported Coding Level of Care Code Est Pt Level 4 (69936) Est Pt Prev Care 40-64y(08058) Diagnoses Routine medical exam Z00.00 Hypertension I10 Hyperlipidemia E78.5 Subclinical hypothyroidism E03.8 Additional Codes PHQ-9 - 41233 - PHQ-9 Billing: Yes ([id number]) Assessment & Plan Assessment & Plan (1) Routine medical exam: Code(s): Z00.00 - Encounter for general adult medical examination without abnormal findings Category: Medical Plan: 60-year-old male presenting for annual exam. Plan as below (2) Hypertension: Code(s): I10 - Essential (primary) hypertension Category: Medical Plan: Uncontrolled. Increase amlodipine to 5 mg twice daily and continue losartan 50 mg twice daily. Low-sodium diet. We will follow-up in the office in 1-2 weeks for nursing BP visit and we will continue checking blood pressures at home (3) Hyperlipidemia: Code(s): E78.5 - Hyperlipidemia, unspecified Category: Medical Plan: Lipid panel ordered. ASCVD risk score to be calculated pending results. Diet low in saturated fats and highly processed foods. Also recommend adding weight-bearing/moderate intensity exercise as discussed in the office (4) Subclinical hypothyroidism: Code(s): E03.8 - Other specified hypothyroidism Category: Medical Plan: Euthyroid. We will continue monitoring Plan Routine screening labs as ordered below Continue with screening colonoscopies and PSA Continue following for annual skin exams and use sun protection Annual eye exams Dental exams twice yearly Wear seat belt in car Recommend regular exercise and healthy diet Follow up in 1-2 weeks for nurse BP check then in 6 months for routine visit with me Orders: Orders Liver Panel Today Z00.00 - Encounter for general adult medical examination without abnormal findings Microalbumin, Random (w Creat) Today Z00.00 - Encounter for general adult medical examination without abnormal findings Basic Metabolic Panel 6 Months E78.5 - Hyperlipidemia, unspecified, I10 - Essential (primary) hypertension Lipid Panel 6 Months E78.5 - Hyperlipidemia, unspecified, I10 - Essential (primary) hypertension Basic Metabolic Panel Today Z00.00 - Encounter for general adult medical examination without abnormal findings Hemoglobin A1c Today Z00.00 - Encounter for general adult medical examination without abnormal findings Lipid Panel Today Z00.00 - Encounter for general adult medical examination without abnormal findings Complete Blood Count Auto Diff Today Z00.00 - Encounter for general adult medical examination without abnormal findings Prostate Specific Antigen Today Z00.00 - Encounter for general adult medical examination without abnormal findings TSH reflex Free T4 6 Months E03.8 - Other specified hypothyroidism, E78.5 - Hyperlipidemia, unspecified, I10 - Essential (primary) hypertension Medications: Changed From amlodipine 5 mg PO DAILY 90 tabs 1RF To amlodipine 5 mg PO BID 180 tabs 1RF
[2025-10-07 08:08] VITALS: BP 148/90; PULSE 78; RESP 14; TEMP 36.7; O2SAT 98; BMI 33.0
--- OUTSIDE RECORDS SUMMARY | 2025-10-07 08:24 | XMS_ITS | Clinical Summary ---
Author Organization [facility] Address [address] [place] [id number] Care Team Providers Care Laborer Plumbing Name Role Phone Pcp, No Primary Care [...] (1 - 1-dose 75+ series) 2041 Insurance [employer] [facility] PPO [employer] OUT [facility] - PPO [employer] [place] OUT OF [facility] - O Care Teams Laborer Plumbing Relationship Specialty Start Date End Date Pcp, No PCP - General General Medicine 06/29/20
--- OUTSIDE RECORDS SUMMARY | 2025-10-07 08:24 | XMS_ITS | Clinical Summary ---
Author Organization [address] [place] [address] Address [address] [place] [address] Phone Care Team Providers Care Corporate Concierge Name Role Phone Rex Velásquez MD Primary Care Provider [phone] Allergies No known active allergies Social History [...] patient's age to complete this topic [place] [address] Care Teams Corporate Concierge Relationship Specialty Start Date End Date Rex Velásquez MD [address] [place] [address] Dr [place] PCP - General Internal Medicine 10/08/24
[2025-10-07 08:38] VITALS: BP 160/100
== END 2025-10-07 08:36 | disposition home or self-care (01) ==
LOC: HO.HMCHD 07:57
PROVIDERS: PCP Internal Medicine; Visit Provider Physician Assistant
DX: Z00.00 Encounter for general adult medical examination without abnormal findings (principal); I10 Essential (primary) hypertension; E78.5 Hyperlipidemia, unspecified; E03.8 Other specified hypothyroidism

== ENCOUNTER → 2025-10-07 07:56 | Outpatient (BNVA) | payer BC, SELFPAY | PROVIDERS: PCP Internal Medicine; Visit Provider Physician Assistant | DX: Z00.00 Encounter for general adult medical examination without abnormal findings (principal); I10 Essential (primary) hypertension; E78.5 Hyperlipidemia, unspecified; E03.8 Other specified hypothyroidism; E66.9 Obesity, unspecified; Z68.33 Body mass index [BMI] 33.0-33.9, adult; Z79.899 Other long term (current) drug therapy; Z13.31 Encounter for screening for depression | CPT/HCPCS: 96127 ==

== ENCOUNTER 2025-10-07 08:44 | Outpatient (REF) | payer BC, SELFPAY ==
[2025-10-07 10:16] LABS: MANUAL DIFF FLAG NO
[2025-10-07 10:40] LABS: Alanine Aminotransferase 38 U/L (0-40); Albumin Level 4.3 g/dL (3.5-5.0); Alkaline Phosphatase 75 U/L (39-117); Anion Gap 10 (12-20); Aspartate Amino Transferase 33 U/L (5-37); Blood Urea Nitrogen 16 mg/dL (9-16); Calcium 8.8 mg/dL (8.4-10.2); Carbon Dioxide 29 mmol/L (22-29); Chloride 108 mmol/L (96-108); Cholesterol 203 mg/dL (<200); Estimated Glomerular Filt Rate > 60; HDL Cholesterol 38 mg/dL (>40); Potassium 4.3 mmol/L (3.3-5.1); Sodium 143 mmol/L (135-145); Total Protein 6.9 g/dL (6.5-8.0); Triglycerides 158 mg/dL (<150)
[2025-10-07 10:52] LABS: Prostate Specific Antigen 1.12 ng/mL (<0.05-4.0)
[2025-10-07 10:58] LABS: Hematocrit 47.6 % (42.0-52.0); Hemoglobin 16.2 g/dl (14.0-18.0); Imm Gran Abs Auto 0.02 X10*3/uL (0.00-0.03); Imm Gran Pct Auto 0.3 % (0.0-0.4); Lymphocytes Absolute Auto 1.6 X10*3/uL (1.2-4.9); Mean Corpuscular HGB Conc 34.0 g/dl (31.0-36.0); Mean Corpuscular Hemoglobin 30.0 pg (27.0-33.0); Mean Corpuscular Volume 88.1 fL (80.0-98.0); NRBC Abs Auto 0.000 X10*3/uL (0.0-0.012); NRBC Pct Auto 0.0 /100WBC (0.0-0.2); Platelet Count 221 X10*3/uL (160-400); Red Blood Count 5.40 X10*6/uL (4.60-5.80); White Blood Count 7.1 X10*3/uL (4.8-10.8)
[2025-10-07 11:47] LABS: Microalbum/Creatinine Ratio Ur 6.1 ug/mg cr (<30)
== END 2025-10-07 08:45 | disposition home or self-care (01) ==
LOC: HO.10HDL 08:44
PROVIDERS: Visit Provider Physician Assistant
DX: Z00.00 Encounter for general adult medical examination without abnormal findings (principal); Z12.5 Encounter for screening for malignant neoplasm of prostate; Z13.1 Encounter for screening for diabetes mellitus; Z13.0 Encounter for screening for diseases of the blood and blood-forming organs and certain disorders involving the immune mechanism; Z13.6 Encounter for screening for cardiovascular disorders
CPT/HCPCS: 36415; 80048; 80061; 80076; 82043; 82570; 83036; 84153; 85025

== ENCOUNTER → 2025-10-21 09:03 | Outpatient (BNVA) | payer BC, SELFPAY | PROVIDERS: PCP Internal Medicine | DX: Z01.89 Encounter for other specified special examinations (principal) ==